=== PATIENT | female | born 1990 | race Caucasian/White ===

== ENCOUNTER 2016-07-27 05:50 | Emergency (ER) | payer OTHER ==
[~2016-07-27] VITALS: Ht 157.5 cm; Wt 95.3 kg
[2016-07-27 05:53] VITALS: TEMP 36.8; Ht 157.5 cm; Wt 95.3 kg
[2016-07-27] MEDS ORDERED: CLON0.2T PO (06:11)
[2016-07-27] MEDS ORDERED: MIRT30TA2 PO (06:12)
[2016-07-27] MEDS ORDERED: SODIUM CHLORIDE 0.9% 1000ML 2,000 ML IV STA (06:13)
[2016-07-27] MEDS ORDERED: ONDANSETRON INJ 2 MG/ML 2 ML VIAL IV STA (06:13)
[2016-07-27] MEDS ORDERED: QUET150T PO (06:13)
[2016-07-27] MEDS ORDERED: GABA-113 PO (06:14)
[2016-07-27] MEDS ORDERED: DICYCLOMINE HCL 10 MG/ML 2 ML AMP IM ONE (06:15)
[2016-07-27] MEDS ORDERED: EUCERIN CR 120 GM JAR EXT STA (06:15)
[2016-07-27] MEDS ORDERED: BND25 PO (06:16)
[2016-07-27] MEDS ORDERED: FAMOTIDINE IV INJ 20 MG in DEXTROSE 5% 100ML 100 ML IV STA (06:22)
[2016-07-27] MEDS ORDERED: ONDANSETRON HOME PACK 4MG OD TAB PO ONE (06:30)
[2016-07-27 06:42] LABS: BASO % 0.4 %; BASO ABS # 0.03 K/uL (0-0.2); COMPLETE YES; EOS % 1.1 %; HEMATOCRIT 38.6 % (37-47); IG% 0.1 %; LYMPH % 27.1 %; LYMPH ABS # 2.26 K/uL (1.2-3.4); MEAN CELL VOLUME 85.2 fL (80-100); MEAN CORPUSCULAR HEMOGLOBIN 29.4 pg (25-34); MEAN CORPUSCULAR HGB CONC 34.5 g/dl (32-36); MEAN PLATELET VOLUME 9.9 fL (7.4-10.4); MONO % 10.3 %; PLATELET COUNT 331 K/uL (130-400); RED BLOOD COUNT 4.53 M/uL (4.2-5.4); WHITE BLOOD COUNT 8.35 K/uL (4.8-10.8)
[2016-07-27] MEDS ORDERED: FAMOTIDINE 20MG/102 ML D5W ONE (06:46)
[2016-07-27 07:02] LABS: BUN/CREATININE RATIO 12.7 (10-20); CALCIUM 8.9 mg/dl (8.5-10.1); CREATININE 0.87 mg/dl (0.60-1.20); POTASSIUM 3.7 mmol/L (3.5-5.1)
[2016-07-27 07:17] LABS: PREG INTERNAL NEGATIVE QC NEG CLEAR BACKGROUND; PREG INTERNAL POSITIVE QC POS CONTROL LINE
--- NOTE | 2016-07-27 07:38 | EMERGENCY ROOM VISIT NOTE ---
ED Visit Note First contact with patient: 08:00 The patient was signed out to me at shift change by Gracy Solorzano PA-C. At the time of shift change, laboratory studies are pending. The patient does not have a fever, leukocytosis. She was reexamined. Her abdominal pain is diffuse , crampy and waxes and wanes. It is associated with nausea, vomiting and diarrhea. This more likely represents a gastroenteritis. She was advised that the pain localizes to the right lower quadrant and becomes constant she will need to return for further evaluation and management. She also incidentally stated that she slipped on the ice and twisted her back a week ago. She did not fall to the ground. She has no numbness, tingling or weakness in the legs. She has not had any loss of bowel or bladder control. She did not fall to the ground. This is likely muscular in nature. She'll be given a prescription for Flexeril. She should follow-up with her family doctor. She should return with worsening symptoms. DIFFERENTIAL DIAGNOSIS: Lumbar strain, degenerative disc disease, spondylolisthesis, herniated disc, spinal stenosis, osteoporosis, fracture, cauda equina syndrome, neoplasm, infection, inflammatory arthritis, Hepatitis, cholecystitis, cholangitis, biliary colic, pancreatitis, pneumonia, subdiaphragmatic abscess, appendicitis, inguinal hernia, nephrolithiasis, inflammatory bowel disease, mesenteric adenitis, peptic ulcer disease, GERD, gastritis, pancreatitis, myocardial infarction, pericarditis, ruptured aortic aneurysm, appendicitis, gastroenteritis, bowel obstruction, splenic infarct, diverticulitis, mesenteric ischemia, metabolic, peritonitis, among others. DIAGNOSIS: #1 nausea, vomiting and diarrhea #2 myofascial lumbar strain
[2016-07-27] MEDS ORDERED: CYCL10TA6 PO (07:41)
[2016-07-27 07:51] VITALS: BP 122/83; PULSE 89; O2SAT 98
--- NOTE | 2016-07-28 05:35 | EMERGENCY ROOM VISIT NOTE ---
History First contact with patient: 06:12 Chief Complaint: ABDOMINAL PAIN Stated Complaint: STOMACH PAIN,VOMITING,DIARRHEA History of Present Illness The patient is a 26 year old female who presents to the Emergency Room with complaints of nausea, vomiting, diarrhea and abdominal cramping for the past day. Patient also complains of a flareup of her eczema and is requesting cream for this. Patient complains of a few episodes of vomiting and diarrhea that is nonbloody nonbilious [id number] nonblack and tarry in nature. No well water. No bad food exposure. She's had amoxicillin this past 3 months. Patient denies chest pain, dyspnea, fever, chills, cough, congestion, back pain , urinary symptoms. No localized abdominal pain. Review of Systems See HPI for pertinent positives & negatives. A total of 10 systems reviewed and were otherwise negative. Past Medical/Surgical History Mood disorder, endometriosis, GERD Social History Smoking Status: Former Smoker Drug Use: none Housing Status: lives with family Current/Historical Medications Scheduled Clonidine Hcl (Catapres), 0.4 MG PO HS Cyclobenzaprine Hcl (Flexeril), 10 MG PO TID Diphenhydramine Hcl (Benadryl), 50 MG PO HS Gabapentin (Neurontin), 900 MG PO HS Mirtazapine Soltab (Remeron Soltab), 30 MG PO HS Quetiapine Fumarate Xr (Seroquel Xr), 150 MG PO HS Allergies Coded Allergies: Calcium Channel Blockers (Verified Allergy, Mild, Hives, 07/27/16) Doxycycline (Verified Allergy, Mild, Vomiting, 07/27/16) Physical Exam Vital Signs Date Time Temp Pulse Resp B/P Pulse Ox O2 Delivery O2 Flow Rate FiO2 07/27/16 07:51 89 18 122/83 98 07/27/16 05:53 36.8 96 16 115/78 97 Room Air Physical Exam VITALS: Vitals are noted on the nurse's note and reviewed by myself. Vital signs stable. GENERAL: Pleasant female, in no acute distress, nondiaphoretic, well-developed well-nourished. SKIN: Eczema to bilateral arms and back The rest of the skin was without rashes , erythema, edema, or bruising. There is no tenting of the skin. Capillary reflex less than 2 seconds. HEAD: Normocephalic atraumatic. EARS: External auditory canals clear, tympanic membranes pearly redding without erythema or effusion bilaterally. EYES: Pupils equal round and reactive to light and accommodation. Conjunctivae without injection, sclerae without icterus. Extraocular movements intact. NOSE: Patent, turbinates without inflammation or discharge. MOUTH: Mucous membranes mildly dry. Pharynx without erythema or exudate. Uvula midline. Airway patent. Tongue does not deviate. NECK: Supple without nuchal rigidity. No lymphadenopathy. No thyromegaly. Cervical spine is nontender. No JVD. HEART: Regular rate and rhythm without murmurs gallops or rubs. LUNGS: Clear to auscultation bilaterally without wheezes, rales or rhonchi. No dullness to percussion. No retractions or accessory muscle use. ABDOMEN: Positive bowel sounds x 4. Normal tympanic percussion. Soft, nontender, without masses or organomegaly. Calderon sign negative. No guarding or rebound tenderness. No CVA tenderness MUSCULOSKELETAL: No muscle atrophy, erythema, or edema noted. NEURO: Patient was alert and oriented to person place and time. Normal sensation to light and sharp touch. No focal neurological deficits. Medical Decision & Procedures Laboratory Results 07/27/16 06:25 Red Blood Count 4.53, Mean Corpuscular Volume 85.2, Mean Corpuscular Hemoglobin 29.4, Mean Corpuscular Hemoglobin Concent 34.5, Mean Platelet Volume 9.9, Neutrophils (%) (Auto) 61.0, Lymphocytes (%) (Auto) 27.1, Monocytes (%) (Auto) 10.3, Eosinophils (%) (Auto) 1.1, Basophils (%) (Auto) 0.4, Neutrophils # (Auto ) 5.10, Lymphocytes # (Auto) 2.26, Monocytes # (Auto) 0.86, Eosinophils # (Auto ) 0.09, Basophils # (Auto) 0.03 07/27/16 06:25 Test 07/27/16 06:25 White Blood Count 8.35 K/uL (4.8-10.8) Red Blood Count 4.53 M/uL (4.2-5.4) Hemoglobin 13.3 g/dL (12.0-16.0) Hematocrit 38.6 % (37-47) Mean Corpuscular Volume 85.2 fL (80-100) Mean Corpuscular Hemoglobin 29.4 pg (25-34) Mean Corpuscular Hemoglobin Concent 34.5 g/dl (32-36) Platelet Count 331 K/uL (130-400) Mean Platelet Volume 9.9 fL (7.4-10.4) Neutrophils (%) (Auto) 61.0 % Lymphocytes (%) (Auto) 27.1 % Monocytes (%) (Auto) 10.3 % Eosinophils (%) (Auto) 1.1 % Basophils (%) (Auto) 0.4 % Neutrophils # (Auto) 5.10 K/uL (1.4-6.5) Lymphocytes # (Auto) 2.26 K/uL (1.2-3.4) Monocytes # (Auto) 0.86 K/uL (0.11-0.59) Eosinophils # (Auto) 0.09 K/uL (0-0.5) Basophils # (Auto) 0.03 K/uL (0-0.2) RDW Standard Deviation 44.6 fL (36.4-46.3) RDW Coefficient of Variation 14.3 % (11.5-14.5) Immature Granulocyte % (Auto) 0.1 % Immature Granulocyte # (Auto) 0.01 K/uL (0.00-0.02) Anion Gap 9.0 mmol/L (3-11) Est Creatinine Clear Calc Drug Dose 105.5 ml/min Estimated GFR () 106.6 Estimated GFR (Non- 91.9 BUN/Creatinine Ratio 12.7 (10-20) Calcium Level 8.9 mg/dl (8.5-10.1) Human Chorionic Gonadotropin, Qual NEG (NEG) Medications Administered Medications (Trade) Dose Ordered Sig/Lou Route Start Time Stop Time Status Last Admin Dose Admin Ondansetron HCl 4 mg 4 mg NOW STAT IV 07/27/16 06:13 07/27/16 06:15 DC 07/27/16 06:40 4 MG Sodium Chloride (Nss 1000ml) 2,000 ml @ 999 mls/hr Q2H1M STAT IV 07/27/16 06:13 07/27/16 08:13 DC 07/27/16 06:39 999 MLS/HR Dicyclomine HCl (Bentyl Inj) 20 mg NOW ONCE IM 07/27/16 06:15 07/27/16 06:16 DC 07/27/16 06:41 20 MG Multi-Ingredient Ointment 1 appln 1 appln NOW STAT EXT 07/27/16 06:15 07/27/16 06:16 DC 07/27/16 06:15 1 APPLN Famotidine/ Dextrose (Pepcid IV Inj/ D5 100ml) 102 ml @ 200 mls/hr NOW STAT IV 07/27/16 06:22 07/27/16 06:52 DC 07/27/16 06:22 200 MLS/HR Ondansetron HCl (ZOFRAN ODT 4MG Home Pack) 1 homepack UD ONCE PO 07/27/16 06:30 07/27/16 06:31 DC 07/27/16 06:54 1 HOMEPACK ED Course Prior records/ancillary studies reviewed. Triage Nursing notes reviewed. Additional history obtained from the family. The patient's history was concerning for nausea, vomiting, diarrhea, and abdominal pain. Differential diagnosis: Etiologies such as gastroenteritis, food borne illness, infections, appendicitis , diverticulitis, inflammatory bowel disease, obstruction, GI bleed, biliary pathology, as well as others were entertained. Physical examination findings: As above. Abdominal examination revealed no tenderness. Vital signs reviewed and revealed stable. ER treatment provided: IV hydration 1 L NSS. Zofran, Bentyl, Pepcid On reassessment the patient felt better. Patient was tolerating p.o. intake. Diagnostics interpretation by me: The labs revealed no worrisome leukocytosis or anemia. This appears to be consistent with vomiting and diarrhea. Patient felt much better after being medicated as above. She is tolerating fluids. She is advised to rest, stay well-hydrated and to do clear liquid diet today and the progress as tolerated to bland diet tonight. She is advised to follow-up with family care in a few days or here in the ER sooner for abdominal pain, fevers, vomiting, worsening signs or symptoms or as needed. She is advised to apply Eucerin cream as directed. Avoid hot showers. By the evaluation outlined above emergent etiologies such as appendicitis, diverticulitis, obstruction, cardiac sources, mesenteric ischemia, aortic pathology, inflammatory bowel disease, renal colic, PUD, biliary pathology, UTI, as well as others were deemed relatively unlikely. The pt informed about the findings as listed above. All questions were answered and pleased with the treatment. Return instructions were outlined and the patient was discharged in stable condition. Outpatient prescription management: zofran Referral: The patient was referred to their primary care physician for follow-up in 2 to 3 days for a recheck of the current condition. Medical Decision As above Impression Primary Impression: Nausea vomiting and diarrhea Additional Impression: Eczema of both upper extremities Departure Information Dispostion Home / Self-Care Condition GOOD Prescriptions Cyclobenzaprine Hcl (FLEXERIL) 10 Mg Tab 10 MG PO TID, #20 TAB Prov: Naheed Guthrie PA-C 07/27/16 Referrals No Doctor, Assigned (PCP) Patient Instructions A Signature Page Additional Instructions Apply Eucerin cream 2-3 times to the affected area. Avoid excessively hot showers. DO NOT drive, drink alcohol, operate machinery, or perform dangerous activities today. You were given medications in the ER that can affect your ability to safely function or operate a vehicle. Zofran(odansetron) tablets 4mg: Take one and allow it to dissolve in your mouth every four to six hours as needed for nausea or vomiting. Ibuprofen(Motrin, Advil) may be used for fever or pain. Use 600mg every six hours as needed. Take with food. Avoid using more than 2400mg in a 24 hour period. Do not use 2400mg per day for more than three consecutive days without physician direction. Prolonged inappropriate use can lead to stomach upset or ulcers. (AND/OR) Acetaminophen(Tylenol) may be used for fever or pain. Use 1000mg every six hours as needed. Avoid using more than 3000mg in a 24 hour period. Rest and drink plenty of fluids as tolerated. Slow sips of water or sports drinks are recommended instead of large amounts all at once. Continue current medications. Once your stomach is settled start with a clear liquid diet (jello, soup broth, etc.) and then advance as tolerated. You should avoid full, heavy meals for about 24 hrs from the time your symptoms resolved. Return to the ER for persistent vomiting, fevers, abdominal pain, chest pains, difficulty breathing, black or bloody stools, worsening of your condition, or as needed. Follow up with your primary physician in 2-3 days for a recheck of your current condition. Problem Qualifiers
== END 2016-07-27 07:52 | disposition home or self-care (01) ==
LOC: C.EDB 05:51
DX: R11.2 Nausea with vomiting, unspecified (principal); R19.7 Diarrhea, unspecified; L30.9 Dermatitis, unspecified; Z87.891 Personal history of nicotine dependence; S39.012A Strain of muscle, fascia and tendon of lower back, initial encounter; W00.0XXA Fall on same level due to ice and snow, initial encounter; Y93.89 Activity, other specified; Y92.89 Other specified places as the place of occurrence of the external cause; Y99.8 Other external cause status

== ENCOUNTER 2016-08-25 21:29 | Emergency (ER) | payer OTHER ==
[~2016-08-25] VITALS: Ht 157.5 cm; Wt 96.5 kg
[~2016-08-25 21:29] MED LIST: BND25 PO; CLON0.2T PO; GABA-113 PO; MIRT30TA2 PO; QUET150T PO
[2016-08-25 21:39] VITALS: TEMP 37.9; Ht 157.5 cm; Wt 96.5 kg
[2016-08-25] MEDS ORDERED: KETOROLAC TROMETHAMINE 30 MG/ML VIAL IV STA (22:36)
[2016-08-25] MEDS ORDERED: SODIUM CHLORIDE 0.9% 1000ML 1,000 ML IV ONE (22:45)
[2016-08-25 23:14] LABS: BUN/CREATININE RATIO 7.4 (10-20); CALCIUM 8.9 mg/dl (8.5-10.1); CREATININE 0.88 mg/dl (0.60-1.20)
[2016-08-25 23:24] LABS: ALB/GLOB RATIO 0.6 (0.9-2); THYROID STIMULATING HORMONE 2.22 uIu/ml (0.300-4.500)
[2016-08-25 23:45] LABS: COMPLETE YES; EOSINOPHIL % 1.8 %; HEMATOCRIT 40.7 % (37-47); LYMPH ABS # 1.56 K/uL (1.2-3.4); LYMPHOCYTE % 22.3 %; MEAN CELL VOLUME 83.6 fL (80-100); MEAN CORPUSCULAR HEMOGLOBIN 28.7 pg (25-34); MEAN CORPUSCULAR HGB CONC 34.4 g/dl (32-36); MEAN PLATELET VOLUME 10.4 fL (7.4-10.4); META ABS # 0.06 K/uL (0-0); METAMYELOCYTE % 0.9 %; NEUTROPHILS % 47.3 %; PLATELET COUNT 209 K/uL (130-400); PLT ESTIMATE NORMAL; RED BLOOD COUNT 4.87 M/uL (4.2-5.4); VACUOLIZATION 1+; VARIANT LYM ABS # 1.69 K/uL; VARIANT LYMPHOCYTE % 24.1 %
--- NOTE | 2016-08-25 23:45 | DIAGNOSTIC IMAGING REPORT ---
ULTRASOUND SOFT TISSUES NECK CLINICAL HISTORY: Right-sided neck mass. COMPARISON STUDY: No priors. FINDINGS: Real-time, grayscale, and color Doppler sonography of the soft tissues of the right neck is performed. There are hypoechoic well-circumscribed soft tissue masses identified in this region typical in appearance for lymphadenopathy. Largest node measures 3.9 x 2.4 x 2.5 cm. These demonstrate internal vascularity on color imaging. No fluid collection is seen. IMPRESSION: The finding of palpable concern corresponds to cervical lymphadenopathy. This could be a reactive basis or related to an infection process such as mononucleosis. Clinical correlation will be required, and clinical follow-up to resolution is recommended. If these lymph nodes fail to resolve over a reasonable time course then repeat ultrasound and fine-needle aspiration should be considered. Electronically signed by: Bryson Ulloa M.D. 08/25/2016 11:44 PM Dictated Date/Time: 08/25/2016 11:41 PM
[2016-08-26 00:19] VITALS: BP 129/83; PULSE 112; O2SAT 98
--- NOTE | 2016-08-26 01:52 | EMERGENCY ROOM VISIT NOTE ---
History First contact with patient: 22:01 Chief Complaint: WOUND INFECTION Stated Complaint: LUMP IN NECK PALPABLE Nursing Triage Summary: pt reports swollen gland to right side of neck since yesterday. worsening. c/o headache today, hot and cold/chills, denies throat pain. Tried hot and cold compresses and Ibuprofen at 1700. no relief History of Present Illness The patient is a 26 year old female who presents to the Emergency Room with complaints of a painful swollen lump in her right side neck. The patient states this has worsened over the past 48 hours. She does have a slight amount of throat pain. She has not had relief of symptoms with warm compress and ibuprofen. She is able to swallow and breathe without difficulty. No chest pain or cough. The patient does have a mild headache. She rates her discomfort an 8/10. Review of Systems More than 10 systems were reviewed and otherwise negative with the exception of history of present illness. Past Medical/Surgical History No pertinent chronic medical disease Family History No pertinent family history Social History Smoking Status: Never Smoker Drug Use: none Housing Status: lives with family Current/Historical Medications Scheduled Clonidine Hcl (Catapres), 0.5 MG PO HS Diphenhydramine Hcl (Benadryl), 50 MG PO HS Gabapentin (Neurontin), 900 MG PO HS Mirtazapine Soltab (Remeron Soltab), 30 MG PO HS Quetiapine Fumarate Xr (Seroquel Xr), 150 MG PO HS Allergies Coded Allergies: Calcium Channel Blockers (Verified Allergy, Mild, Hives, 08/25/16) Doxycycline (Verified Allergy, Mild, Vomiting, 08/25/16) Physical Exam Vital Signs Date Time Temp Pulse Resp B/P Pulse Ox O2 Delivery O2 Flow Rate FiO2 08/26/16 00:19 112 19 129/83 98 Room Air 08/25/16 23:40 110 19 141/83 96 Room Air 08/25/16 21:39 37.9 87 20 130/62 99 Room Air Pain Rating (0-10): 5.0 Physical Exam VITALS: Vitals are noted on the nurse's note and reviewed by myself. Vital signs stable. GENERAL: Well-developed, well-nourished, white female, who is in no acute distress and resting comfortably. Patient is cooperative with the examination. HEAD: Normocephalic atraumatic. EARS: External ear normal. External auditory canals clear, tympanic membranes pearly redding without erythema or effusion bilaterally. EYES: Pupils equal round and reactive to light and accommodation. Conjunctivae without injection, sclerae without icterus. Extraocular movements intact. NOSE: Patent, turbinates without inflammation or discharge. MOUTH: Mucous membranes moist. Tonsils are not enlarged. Pharynx without erythema, blood, or exudate. Uvula midline. Airway patent. NECK: Supple without nuchal rigidity. There is a notable right anterior chain lymph node measuring approximately 3.5 cm x 3 cm in dimension. This is freely mobile and slightly tender. No other significant wounds appreciated. HEART: Regular rate and rhythm without murmurs gallops or rubs. LUNGS: Clear to auscultation bilaterally without wheezes, rales or rhonchi. No retractions or accessory muscle use. ABDOMEN: Positive normal bowel sounds x 4. Soft, nontender, without masses or organomegaly. No guarding or rebound tenderness. MUSCULOSKELETAL: No muscle atrophy, erythema, or edema noted. Full range of motion without joint tenderness in all extremities. Medical Decision & Procedures ER Provider Diagnostic Interpretation: ULTRASOUND SOFT TISSUES NECK CLINICAL HISTORY: Right-sided neck mass. COMPARISON STUDY: No priors. FINDINGS: Real-time, grayscale, and color Doppler sonography of the soft tissues of the right neck is performed. There are hypoechoic well-circumscribed soft tissue masses identified in this region typical in appearance for lymphadenopathy. Largest node measures 3.9 x 2.4 x 2.5 cm. These demonstrate internal vascularity on color imaging. No fluid collection is seen. IMPRESSION: The finding of palpable concern corresponds to cervical lymphadenopathy. This could be a reactive basis or related to an infection process such as mononucleosis. Clinical correlation will be required, and clinical follow-up to resolution is recommended. If these lymph nodes fail to resolve over a reasonable time course then repeat ultrasound and fine-needle aspiration should be considered. Laboratory Results 08/25/16 22:30 Red Blood Count 4.87, Mean Corpuscular Volume 83.6, Mean Corpuscular Hemoglobin 28.7, Mean Corpuscular Hemoglobin Concent 34.4, Mean Platelet Volume 10.4 08/25/16 22:30 Test 08/25/16 22:30 White Blood Count 7.00 K/uL (4.8-10.8) Red Blood Count 4.87 M/uL (4.2-5.4) Hemoglobin 14.0 g/dL (12.0-16.0) Hematocrit 40.7 % (37-47) Mean Corpuscular Volume 83.6 fL (80-100) Mean Corpuscular Hemoglobin 28.7 pg (25-34) Mean Corpuscular Hemoglobin Concent 34.4 g/dl (32-36) Platelet Count 209 K/uL (130-400) Mean Platelet Volume 10.4 fL (7.4-10.4) RDW Standard Deviation 42.6 fL (36.4-46.3) RDW Coefficient of Variation 13.9 % (11.5-14.5) Neutrophils % (Manual) 47.3 % Lymphocytes % (Manual) 22.3 % Variant Lymphocytes % (manual) 24.1 % Monocytes % (Manual) 3.6 % Eosinophils % (Manual) 1.8 % Metamyelocytes % 0.9 % Neutrophils # (Manual) 3.31 K/uL (1.4-6.5) Total Absolute Neutrophils 3.31 K/uL (1.4-6.5) Lymphocytes # (Manual) 1.56 K/uL (1.2-3.4) Absolute Variant Lymphocytes 1.69 K/uL Total Absolute Lymphocytes 3.25 K/uL (1.2-3.4) Monocytes # (Manual) 0.25 K/uL (0.11-0.59) Eosinophils # (Manual) 0.13 K/uL (0-0.5) Metamyelocytes # 0.06 K/uL (0-0) Toxic Vacuolation 1+ Platelet Estimate NORMAL Anion Gap 12.0 mmol/L (3-11) Est Creatinine Clear Calc Drug Dose 105.0 ml/min Estimated GFR () 105.1 Estimated GFR (Non- 90.7 BUN/Creatinine Ratio 7.4 (10-20) Calcium Level 8.9 mg/dl (8.5-10.1) Total Bilirubin 0.4 mg/dl (0.2-1) Aspartate Amino Transf (AST/SGOT) 41 U/L (15-37) Alanine Aminotransferase (ALT/SGPT) 26 U/L (12-78) Alkaline Phosphatase 119 U/L (45-117) Total Protein 8.4 gm/dl (6.4-8.2) Albumin 3.1 gm/dl (3.4-5.0) Globulin 5.3 gm/dl (2.5-4.0) Albumin/Globulin Ratio 0.6 (0.9-2) Thyroid Stimulating Hormone (TSH) 2.220 uIu/ml (0.300-4.500) Monoscreen POS (NEG) Medications Administered Medications (Trade) Dose Ordered Sig/Lou Route Start Time Stop Time Status Last Admin Dose Admin Ketorolac Tromethamine 30 mg 30 mg NOW STAT IV 08/25/16 22:36 08/25/16 22:39 DC 08/25/16 22:50 30 MG Sodium Chloride (Nss 1000ml) 1,000 ml @ 999 mls/hr Q1H1M ONCE IV 08/25/16 22:45 08/25/16 23:45 DC 08/25/16 22:50 999 MLS/HR ED Course Physical exam and history were performed. Nursing notes and EMR were reviewed. Patient appears to have a painful right-sided neck mass over the past 48 hours. Clinically this seems most consistent with a lymph node. Rapid strep was performed and was negative. Because of this IV access was established and labs were obtained. The patient was given IV Toradol for her symptoms. Ultrasound was ordered. The patient's blood work is as above and was reviewed. She does not have a significantly elevated white blood cell count, gross anemia, bandemia, or significant electrolyte imbalance. Her transaminases are slightly elevated, and her Monospot is positive. Ultrasound does suggest that she has an enlarged lymph node. Overall the patient appears to have infectious mononucleosis with hepatitis. I had a lengthy discussion with patient regarding significance of this, and the importance of getting her blood work rechecked by her primary care physician. I did discuss the importance of splenic precautions, and other conservative measures. Overall the patient does appear stable for discharge home. She was invited back to the ER with any new, worsening, or concerning symptoms. She voiced understanding and rated her discomfort a 5/10 at the time of departure. The chart was completed utilizing [employer] Voice Recognition Software. Grammatical errors, random word insertions, pronoun errors, and incomplete sentences are an occasional consequence of this system due to software limitations, ambient noise, and hardware issues. Any formal questions or concerns about the content, text, or information contained within the body of this dictation should be directly addressed to the provider for clarification. . Medical Decision Differential diagnosis: Etiologies such as viral syndrome, tonsillitis, streptococcal pharyngitis, mononucleosis, peritonsillar abscess, retropharyngeal abscess, otitis, pneumonia , influenza, as well as others were entertained. Impression Primary Impression: Mononucleosis, infectious, with hepatitis Additional Impression: Lymphadenopathy Departure Information Dispostion Home / Self-Care Condition GOOD Forms HOME CARE DOCUMENTATION FORM, IMPORTANT VISIT INFORMATION Patient Instructions Mononucleosis, My [facility] Additional Instructions You were seen and evaluated today on an emergency basis only. This is not a substitute for, or an effort to provide, complete comprehensive medical care. It is not possible to recognize and treat all injuries or illnesses in a single emergency department visit. For this reason it is recommended that you followup with your primary care physician next week for ongoing care and evaluation. You will need repeat blood work to make sure your liver function tests have returned to normal. Your primary care physician can help facilitate this. For baseline pain relief you may alternate ibuprofen and acetaminophen every 4 hours for pain control. Take 600 mg ibuprofen (Advil) and then 4 hours later take 1000 mg acetaminophen (Tylenol). Do not take more than 3000 mg acetaminophen in a single day. You are welcome to return to the emergency department anytime with new, worsening, or concerning symptoms. Problem Qualifiers
== END 2016-08-26 00:29 | disposition home or self-care (01) ==
LOC: C.EDB 21:30 → C.EDA 08-26 00:29
DX: B27.90 Infectious mononucleosis, unspecified without complication (principal); K75.9 Inflammatory liver disease, unspecified; R59.1 Generalized enlarged lymph nodes; Z79.899 Other long term (current) drug therapy

== ENCOUNTER 2016-08-30 11:27 | Emergency (ER) | payer OTHER ==
[~2016-08-30] VITALS: Ht 157.5 cm; Wt 97.9 kg
[2016-08-30 11:36] VITALS: TEMP 38.2; Ht 157.5 cm; Wt 97.9 kg
[2016-08-30] MEDS ORDERED: ACETAMINOPHEN 325 MG TAB PO STA (11:57)
[2016-08-30] MEDS ORDERED: ONDANSETRON INJ 2 MG/ML 2 ML VIAL IV STA (11:57)
[2016-08-30 12:17] LABS: HEMATOCRIT 38.7 % (37-47); MEAN CELL VOLUME 82.5 fL (80-100); MEAN CORPUSCULAR HEMOGLOBIN 28.4 pg (25-34); MEAN CORPUSCULAR HGB CONC 34.4 g/dl (32-36); MEAN PLATELET VOLUME 10.3 fL (7.4-10.4); PLATELET COUNT 177 K/uL (130-400); RED BLOOD COUNT 4.69 M/uL (4.2-5.4)
[2016-08-30 12:38] LABS: BUN/CREATININE RATIO 7.6 (10-20); CALCIUM 8.6 mg/dl (8.5-10.1); CREATININE 0.86 mg/dl (0.60-1.20)
[2016-08-30] MEDS ORDERED: SODIUM CHLORIDE 0.9% 1000ML 1,000 ML IV STA (12:40)
[2016-08-30] MEDS ORDERED: KETOROLAC TROMETHAMINE 30 MG/ML VIAL IV STA (12:40)
[2016-08-30] MEDS ORDERED: DEXAMETHASONE SOD INJ 10 MG/ML VIAL IV STA (12:40)
[2016-08-30 12:41] LABS: ALB/GLOB RATIO 0.6 (0.9-2)
[2016-08-30] MEDS ORDERED: CLINDAMYCIN IV 900 MG in DEXTROSE 5% ADD-VANTAGE 100ML 100 ML IV ONE (12:45)
[2016-08-30] MEDS ORDERED: OPTIRAY 320 IV PRN (12:45)
[2016-08-30 13:06] LABS: BASO ABS # 0.13 K/uL (0-0.2); BASOPHIL % 0.9 %; COMPLETE YES; LYMPH ABS # 3.23 K/uL (1.2-3.4); LYMPHOCYTE % 22.1 %; NEUTROPHILS % 17.7 %; VACUOLIZATION 1+; VARIANT LYM ABS # 8.26 K/uL; VARIANT LYMPHOCYTE % 56.6 %
--- NOTE | 2016-08-30 13:14 | EMERGENCY ROOM VISIT NOTE ---
History Report prepared by Richie: Pasha Giordano Under the Supervision of: Dr. Zacarias De La O M.D. First contact with patient: 12:34 Chief Complaint: ABDOMINAL PAIN Stated Complaint: VOMIT-RED COLORED, ABD. PAIN, DX: MONO ON SUNDAY Nursing Triage Summary: N/V since sunday. mono diagnosed on sunday. History of Present Illness The patient is a 26 year old female who presents to the Emergency Room with complaints of worsening sharp abdominal pain for the past five days. She additionally states that she has been vomiting. The patient states that she was in the emergency department 5 days ago for similar symptoms, and she was diagnosed with mono. She states that she was told to take Tylenol and Motrin. The patient states that the pain has only gotten worse since then. Source of History: patient Onset: five days ago Position: abdomen Quality: sharp Timing: worsening Associated Symptoms: + vomiting Review of Systems See HPI for pertinent positives & negatives. A total of 10 systems reviewed and were otherwise negative. Past Medical & Surgical Surgical Problems: (1) H/O exploratory laparotomy (2) [place] teeth extracted Family History Cancer Diabetes mellitus Heart disease Hypertension Lung disease Social History Smoking Status: Never Smoker Drug Use: none Marital Status: single Housing Status: lives with family Current/Historical Medications Scheduled Clindamycin Hcl (Cleocin), 300 MG PO QID Clonidine Hcl (Catapres), 0.5 MG PO HS Diphenhydramine Hcl (Benadryl), 50 MG PO HS Gabapentin (Neurontin), 900 MG PO HS Mirtazapine Soltab (Remeron Soltab), 30 MG PO HS Quetiapine Fumarate Xr (Seroquel Xr), 150 MG PO HS Scheduled PRN Hydrocodone W/ Homatropine (Hycodan 5/1.5MG 5 Ml), 5 ML PO HS PRN for Cough Allergies Coded Allergies: Calcium Channel Blockers (Verified Allergy, Mild, Hives, 08/30/16) Doxycycline (Verified Allergy, Mild, Vomiting, 08/30/16) Physical Exam Vital Signs Date Time Temp Pulse Resp B/P Pulse Ox O2 Delivery O2 Flow Rate FiO2 08/30/16 14:51 93 18 122/74 95 08/30/16 12:51 94 20 129/86 94 Room Air 08/30/16 12:26 100 08/30/16 11:36 38.2 123 18 137/91 96 Room Air Physical Exam GENERAL: Patient is a healthy-appearing well-nourished. Swallowing her own saliva HEAD: Normocephalic atraumatic EYES: Ocular movements intact pupils equal and react to light OROPHARYNX mucous membranes are moist no exudates present no erythema or edema present NECK: Supple no nuchal rigidity CHEST: Good equal expansion LUNGS: Clear and equal to auscultation CARDIAC: Normal S1 and S2 ABDOMEN: Soft nontender no guarding BACK: No CVA tenderness EXTREMITIES: No pain upon palpation normal muscle strength in all groups no clubbing cyanosis or edema NEURO: Patient is following commands is answering questions appropriately. Alert and oriented x3 Cranial Nerves 2-12 grossly intact Medical Decision & Procedures ER Provider Diagnostic Interpretation: CT results as stated below per my review and radiologist interpretation: CT SCAN OF THE ABDOMEN AND PELVIS WITH IV CONTRAST CLINICAL HISTORY: Generalized abdominal pain. Nausea and vomiting. COMPARISON STUDY: No priors. TECHNIQUE: Following the IV administration of 119 cc of Optiray 320, CT scan of the abdomen and pelvis is performed from the lung bases to the proximal femora. Images are reviewed in the axial, sagittal, and coronal planes. IV contrast was administered without complication. Automated dose control exposure was utilized. CT DOSE: 919.21 mGycm FINDINGS: Lung bases: The heart is normal in size and without pericardial effusion. A 1.3 cm calcification containing nodule is seen at the left lung base on image #29. Lung bases are otherwise clear noting foci of subsegmental atelectasis. Liver: The contrast-enhanced liver is enlarged, measuring 19.2 cm in length. The liver demonstrates slightly diminished attenuation consistent with hepatic steatosis. Fatty sparing is noted adjacent to gallbladder fossa. There is no intrahepatic biliary ductal dilatation. The hepatic veins and portal veins are patent. Gallbladder: Unremarkable. Spleen: The spleen is enlarged, measuring 15.7 cm in length. Pancreas: Unremarkable. Adrenal glands: Unremarkable. Kidneys: The contrast enhanced kidneys are normal in size and without hydronephrosis. The kidneys enhance symmetrically. Abdominal vasculature: The abdominal aorta is normal in course and caliber. Bowel: The small bowel and colon are normal in course and caliber. There is mild colonic fecal retention. The appendix is well-visualized and normal. Peritoneum: There is no intraperitoneal free air or abdominal ascites. There is a fat-containing umbilical hernia. Lymphadenopathy: There are mildly enlarged retroperitoneal lymph nodes. The largest is aortocaval and measures 10 mm in short axis as seen on image #153. Pelvic viscera: The bladder, uterus, and adnexa are normal as visualized. There are bilateral ovarian follicles. A contraceptive ring is present in the vagina. Skeletal structures: No lytic or blastic lesions are seen. IMPRESSION: 1. There are no acute infectious or inflammatory findings in the abdomen or pelvis. 2. Splenomegaly. 3. Hepatomegaly and mild hepatic steatosis. 4. Mildly enlarged retroperitoneal lymph nodes are nonspecific and may be on a reactive basis. Clinical correlation will be required. Electronically signed by: Bryson Ulloa M.D. 08/30/2016 1:15 PM Dictated Date/Time: 08/30/2016 1:11 PM Laboratory Results 08/30/16 12:05 Red Blood Count 4.69, Mean Corpuscular Volume 82.5, Mean Corpuscular Hemoglobin 28.4, Mean Corpuscular Hemoglobin Concent 34.4, Mean Platelet Volume 10.3 08/30/16 12:05 Test 08/30/16 12:05 08/30/16 14:00 White Blood Count 14.60 K/uL (4.8-10.8) Red Blood Count 4.69 M/uL (4.2-5.4) Hemoglobin 13.3 g/dL (12.0-16.0) Hematocrit 38.7 % (37-47) Mean Corpuscular Volume 82.5 fL (80-100) Mean Corpuscular Hemoglobin 28.4 pg (25-34) Mean Corpuscular Hemoglobin Concent 34.4 g/dl (32-36) Platelet Count 177 K/uL (130-400) Mean Platelet Volume 10.3 fL (7.4-10.4) RDW Standard Deviation 43.5 fL (36.4-46.3) RDW Coefficient of Variation 14.6 % (11.5-14.5) Neutrophils % (Manual) 17.7 % Lymphocytes % (Manual) 22.1 % Variant Lymphocytes % (manual) 56.6 % Monocytes % (Manual) 2.7 % Basophils % (Manual) 0.9 % Neutrophils # (Manual) 2.58 K/uL (1.4-6.5) Total Absolute Neutrophils 2.58 K/uL (1.4-6.5) Lymphocytes # (Manual) 3.23 K/uL (1.2-3.4) Absolute Variant Lymphocytes 8.26 K/uL Total Absolute Lymphocytes 11.49 K/uL (1.2-3.4) Monocytes # (Manual) 0.39 K/uL (0.11-0.59) Basophils # (Manual) 0.13 K/uL (0-0.2) Toxic Vacuolation 1+ Anion Gap 10.0 mmol/L (3-11) Est Creatinine Clear Calc Drug Dose 108.3 ml/min Estimated GFR () 108.1 Estimated GFR (Non- 93.2 BUN/Creatinine Ratio 7.6 (10-20) Calcium Level 8.6 mg/dl (8.5-10.1) Total Bilirubin 0.7 mg/dl (0.2-1) Aspartate Amino Transf (AST/SGOT) 121 U/L (15-37) Alanine Aminotransferase (ALT/SGPT) 117 U/L (12-78) Alkaline Phosphatase 403 U/L (45-117) Total Protein 7.5 gm/dl (6.4-8.2) Albumin 2.7 gm/dl (3.4-5.0) Globulin 4.8 gm/dl (2.5-4.0) Albumin/Globulin Ratio 0.6 (0.9-2) Lipase 93 U/L (73-393) Urine Color YELLOW Urine Appearance CLEAR (CLEAR) Urine pH 7.0 (4.5-7.5) Urine Specific [place] > 1.045 (1.000-1.030) Urine Protein NEG (NEG) Urine Glucose (UA) NEG (NEG) Urine Ketones NEG (NEG) Urine Occult Blood NEG (NEG) Urine Nitrite NEG (NEG) Urine Bilirubin NEG (NEG) Urine Urobilinogen NEG (NEG) Urine Leukocyte Esterase SMALL (NEG) Urine WBC (Auto) 5-10 /hpf (0-5) Urine RBC (Auto) 5-10 /hpf (0-4) Urine Hyaline Casts (Auto) 0 /lpf (0-5) Urine Epithelial Cells (Auto) >30 /lpf (0-5) Urine Bacteria (Auto) 1+ (NEG) Labs reviewed by ED physician. Medications Administered Medications (Trade) Dose Ordered Sig/Lou Route Start Time Stop Time Status Last Admin Dose Admin Ondansetron HCl (Zofran Inj) 4 mg NOW STAT IV 08/30/16 11:57 08/30/16 12:00 DC 08/30/16 12:03 4 MG Acetaminophen (Tylenol Tab) 650 mg NOW STAT PO 08/30/16 11:57 08/30/16 12:00 DC 08/30/16 12:03 650 MG Dexamethasone Sodium Phosphate (Decadron Inj) 10 mg NOW STAT IV 08/30/16 12:40 08/30/16 12:42 DC 08/30/16 12:51 10 MG Ketorolac Tromethamine 30 mg 30 mg NOW STAT IV 08/30/16 12:40 08/30/16 12:42 DC 08/30/16 12:52 30 MG Clindamycin Phosphate 900 mg/ Dextrose 106 ml @ 100 mls/hr ONE ONCE IV 08/30/16 12:45 08/30/16 13:48 DC 08/30/16 13:17 100 MLS/HR Sodium Chloride (Nss 1000ml) 1,000 ml @ 999 mls/hr Q1H1M STAT IV 08/30/16 12:40 08/30/16 13:40 DC 08/30/16 12:52 999 MLS/HR Hydromorphone HCl (Dilaudid Inj) 1 mg NOW STAT IV 08/30/16 13:36 08/30/16 13:38 DC 08/30/16 14:02 1 MG Metoclopramide HCl (Reglan Inj) 10 mg NOW STAT IV 08/30/16 13:36 08/30/16 13:38 DC 08/30/16 14:02 10 MG ED Course 1157: Tylenol Tab 650mg PO, Zofran Inj 4mg IV 1234: Past medical records reviewed. The patient was evaluated in room B12. A complete history and physical examination was performed. 1240: Sodium Chloride 1000 ml @ 999 mls/hr IV, Decadron Inj 10mg IV 1245: Clindamycin Phosphate 900 mg/ Dextrose 106 ml @ 100mls/hr 1336: Reglan Inj 10mg IV, Dilaudid Inj 1mg IV 1419: Upon reexamination the patient is feeling better. I discussed results and treatment plan with the patient. She verbalizes agreement and understanding. The patient is ready for discharge. Medical Decision Differential diagnosis: Etiologies such as appendicitis, diverticulitis, PUD, biliary pathology, UTI, pancreatitis, obstruction, mesenteric ischemia, aortic pathology, infections, inflammatory bowel disease, renal colic, as well as others were entertained. This is a 26-year-old female who presents emergency department complaining of mononucleosis as well as abdominal pain. Based on the patient's complaints a CAT scan was performed of the abdomen and pelvis. This did not show any acute process. In addition the patient is also able swallow her own saliva. For this reason the patient was given normal saline bolus, 4 mg Zofran, Toradol. Repeat examination revealed improvement patient's symptoms. The patient was also given Hycodan in the emergency department. Serial abdominal examinations were performed on this patient in the emergency department and at no time did she exhibit a surgical abdomen. Based on these findings I felt that the patient was well enough to be discharged home for follow-up with her primary care physician. Patient was in agreement with the treatment plan. Impression Primary Impression: Mononucleosis Scribe Attestation The scribe's documentation has been prepared under my direction and personally reviewed by me in its entirety. I confirm that the note above accurately reflects all work, treatment, procedures, and medical decision making performed by me. Departure Information Dispostion Home / Self-Care Prescriptions Clindamycin Hcl (CLEOCIN) 150 Mg Cap 300 MG PO QID for 10 Days, #80 CAP Prov: Zacarias De La O MD 08/30/16 Hydrocodone W/ Homatropine (HYCODAN 5/1.5MG 5 ML) 1 Syp Syp 5 ML PO HS Y for Cough, #120 ML Prov: Zacarias De La O MD 08/30/16 Referrals Katlin Smith MD (PCP) Forms HOME CARE DOCUMENTATION FORM, IMPORTANT VISIT INFORMATION, School Instructions, Work Instructions Patient Instructions ED Adenitis Mesenteric, Mononucleosis, My [facility] Additional Instructions You received narcotic or benzodiazepene medication while in the emergency room today. Do not drive, operate heavy machinery, or drink alcohol under the influence of this medication. Take 600 mg Ibuprofen every 6 hours Take 1000 mg Tylenol every 6 hours You have been examined and treated today on an emergency basis only. This is not a substitute for, or an effort to provide, complete comprehensive medical care. It is impossible to recognize and treat all injuries or illnesses in a single emergency department visit. It is therefore important that you follow up closely with [facility]. Call as soon as possible for an appointment. Thank you for your time and consideration. I look forward to speaking with you again soon. Please don't hesitate to call us if you have any questions.
--- NOTE | 2016-08-30 13:17 | DIAGNOSTIC IMAGING REPORT ---
CT SCAN OF THE ABDOMEN AND PELVIS WITH IV CONTRAST CLINICAL HISTORY: Generalized abdominal pain. Nausea and vomiting. COMPARISON STUDY: No priors. TECHNIQUE: Following the IV administration of 119 cc of Optiray 320, CT scan of the abdomen and pelvis is performed from the lung bases to the proximal femora. Images are reviewed in the axial, sagittal, and coronal planes. IV contrast was administered without complication. Automated dose control exposure was utilized. CT DOSE: 919.21 mGycm FINDINGS: Lung bases: The heart is normal in size and without pericardial effusion. A 1.3 cm calcification containing nodule is seen at the left lung base on image #29. Lung bases are otherwise clear noting foci of subsegmental atelectasis. Liver: The contrast-enhanced liver is enlarged, measuring 19.2 cm in length. The liver demonstrates slightly diminished attenuation consistent with hepatic steatosis. Fatty sparing is noted adjacent to gallbladder fossa. There is no intrahepatic biliary ductal dilatation. The hepatic veins and portal veins are patent. Gallbladder: Unremarkable. Spleen: The spleen is enlarged, measuring 15.7 cm in length. Pancreas: Unremarkable. Adrenal glands: Unremarkable. Kidneys: The contrast enhanced kidneys are normal in size and without hydronephrosis. The kidneys enhance symmetrically. Abdominal vasculature: The abdominal aorta is normal in course and caliber. Bowel: The small bowel and colon are normal in course and caliber. There is mild colonic fecal retention. The appendix is well-visualized and normal. Peritoneum: There is no intraperitoneal free air or abdominal ascites. There is a fat-containing umbilical hernia. Lymphadenopathy: There are mildly enlarged retroperitoneal lymph nodes. The largest is aortocaval and measures 10 mm in short axis as seen on image #153. Pelvic viscera: The bladder, uterus, and adnexa are normal as visualized. There are bilateral ovarian follicles. A contraceptive ring is present in the vagina. Skeletal structures: No lytic or blastic lesions are seen. IMPRESSION: 1. There are no acute infectious or inflammatory findings in the abdomen or pelvis. 2. Splenomegaly. 3. Hepatomegaly and mild hepatic steatosis. 4. Mildly enlarged retroperitoneal lymph nodes are nonspecific and may be on a reactive basis. Clinical correlation will be required. Electronically signed by: Bryson Ulloa M.D. 08/30/2016 1:15 PM Dictated Date/Time: 08/30/2016 1:11 PM
[2016-08-30] MEDS ORDERED: METOCLOPRAMIDE HCL INJ 5 MG/ML 2 ML VIAL IV STA (13:36)
[2016-08-30] MEDS ORDERED: HYDROmorphone INJ 1 MG/ML SYR IV STA (13:36)
[2016-08-30] MEDS ORDERED: HYDR5SYP11 PO (14:19)
[2016-08-30] MEDS ORDERED: CLIN150C PO (14:19)
[2016-08-30 14:30] LABS: URINE APPEARANCE CLEAR (CLEAR); URINE BILIRUBIN NEG (NEG); URINE COLOR YELLOW; URINE EPITHELIAL CELL AUTO >30 /lpf (0-5); URINE NITRITE NEG (NEG); URINE SPECIFIC GRAVITY > 1.045 (1.000-1.030); UROBILINOGEN NEG (NEG); ZZUR CULT IF INDIC CLEAN CATCH YES
[2016-08-30 14:36] LABS: MANUAL MICROSCOPIC REQUIRED? NO; REVIEW REQ? NO
[2016-08-30 14:51] VITALS: BP 122/74; PULSE 93; O2SAT 95
== END 2016-08-30 14:52 | disposition home or self-care (01) ==
LOC: C.EDB 11:29
DX: B27.90 Infectious mononucleosis, unspecified without complication (principal); R10.9 Unspecified abdominal pain; R11.10 Vomiting, unspecified; Z79.899 Other long term (current) drug therapy; Z88.1 Allergy status to other antibiotic agents; Z88.8 Allergy status to other drugs, medicaments and biological substances; Z82.49 Family history of ischemic heart disease and other diseases of the circulatory system; Z83.3 Family history of diabetes mellitus; Z83.6 Family history of other diseases of the respiratory system

== ENCOUNTER → 2016-09-08 | Outpatient (CLI) | payer OTHER ==
[~2016-09-08] MED LIST changes: +AMPH20TA2 PO; +AMT50 PO; +ATR25 PO; +CLIN150C PO; +HYDR-3126 PO; +HYDR-5688 PO; +HYDR5SYP11 PO; +IBUP-1428 PO; +ONDA4TAB10 SL; +OXYC-57 PO; +OXYC1TAB3 PO; +PANT40TA PO; +PROM25TA9 PO; +QUET1TAB34 PO
--- NOTE | 2016-09-08 13:17 | DIAGNOSTIC IMAGING REPORT ---
THYROID ULTRASOUND HISTORY: INFECTIOUS MONONUCLEOSIS COMPARISON: 09/08/2016 FINDINGS: Bilateral cervical nodes are again noted. These appear similar compared to the prior study. The right largest measures 3.6 x 2.2 cm. On the left measure at maximum 2.4 x 1.7 cm. IMPRESSION: Bilateral cervical adenopathy this is most likely stable to slightly progressive compared to the prior exam Electronically signed by: Mendez Neely M.D. 09/08/2016 1:16 PM Dictated Date/Time: 09/08/2016 1:13 PM
== END | disposition home or self-care (01) ==
LOC: C.ULTRBC 12:36
PROVIDERS: ATTEND Family Medicine Adolescent Medicine
DX: B27.90 Infectious mononucleosis, unspecified without complication (principal); R59.0 Localized enlarged lymph nodes

== ENCOUNTER 2016-09-30 21:21 | Emergency (ER) | payer OTHER ==
[~2016-09-30] VITALS: Ht 157.5 cm; Wt 97.2 kg
[~2016-09-30 21:21] MED LIST changes: -AMPH20TA2 PO; -AMT50 PO; -ATR25 PO; -CLIN150C PO; -HYDR-3126 PO; -HYDR-5688 PO; -HYDR5SYP11 PO; -IBUP-1428 PO; -ONDA4TAB10 SL; -OXYC-57 PO; -OXYC1TAB3 PO; -PANT40TA PO; -PROM25TA9 PO; -QUET1TAB34 PO
[2016-09-30 21:29] VITALS: TEMP 36.3; Ht 157.5 cm; Wt 97.2 kg
[2016-09-30] MEDS ORDERED: QUET1TAB34 PO (22:26)
[2016-09-30 22:34] LABS: BASO % 0.4 %; BASO ABS # 0.04 K/uL (0-0.2); COMPLETE YES; EOS % 0.3 %; IG% 0.3 %; LYMPH % 15.6 %; LYMPH ABS # 1.75 K/uL (1.2-3.4); MEAN CELL VOLUME 81.5 fL (80-100); MEAN CORPUSCULAR HEMOGLOBIN 28.5 pg (25-34); MONO % 5.4 %; PLATELET COUNT 283 K/uL (130-400); RED BLOOD COUNT 4.66 M/uL (4.2-5.4); WHITE BLOOD COUNT 11.19 K/uL (4.8-10.8)
[2016-09-30] MEDS ORDERED: LIDOCAINE HCL 2% VISC SOLN 20 ML UDC PO STA (22:44)
[2016-09-30] MEDS ORDERED: ALUMINUM/MAGNESIUM SUSP 30 ML UDC PO STA (22:44)
[2016-09-30] MEDS ORDERED: ONDANSETRON INJ 2 MG/ML 2 ML VIAL IV STA (22:44)
[2016-09-30] MEDS ORDERED: FAMOTIDINE 20MG/102 ML D5W IV STA (22:44)
[2016-09-30] MEDS ORDERED: SODIUM CHLORIDE 0.9% 1000ML 1,000 ML IV STA (22:44)
[2016-09-30 22:54] LABS: BUN/CREATININE RATIO 11.9 (10-20); CALCIUM 8.7 mg/dl (8.5-10.1); CREATININE 0.89 mg/dl (0.60-1.20); POTASSIUM 3.8 mmol/L (3.5-5.1)
[2016-09-30 22:56] LABS: PREG INTERNAL NEGATIVE QC NEG CLEAR BACKGROUND; PREG INTERNAL POSITIVE QC POS CONTROL LINE
[2016-09-30 23:03] LABS: ALB/GLOB RATIO 0.6 (0.9-2)
[2016-10-01] MEDS ORDERED: PANTOprazole SOD 40 MG TAB PO STA (00:50)
[2016-10-01] MEDS ORDERED: PANT40TA PO (00:52)
[2016-10-01] MEDS ORDERED: ONDA4TAB10 SL (00:53)
[2016-10-01] MEDS ORDERED: ONDANSETRON HOME PACK 4MG OD TAB PO ONE (01:00)
[2016-10-01 01:03] VITALS: BP 113/86; PULSE 79; O2SAT 98
--- NOTE | 2016-10-01 04:21 | EMERGENCY ROOM VISIT NOTE ---
History First contact with patient: 22:36 Chief Complaint: VOMITING Stated Complaint: SEVERE NAUSEA & VOMITING Nursing Triage Summary: pt reports that she was here 1 month ago and dx with mono and strep. since then pt has been extremely nauseated and intermittent vomiting. pt reports that she gets nauseated with the smell of food. also reports intermittent mid abd pain. History of Present Illness The patient is a 26 year old female who presents to the Emergency Room with complaints of nausea, vomiting and upset stomach for the past month after taking lots of Tylenol and Motrin and antibiotics for strep throat and mono. Patient had an EGD several years ago, she's had gastritis before. Patient is new to the area. Patient denies chest pain, dyspnea, black or blood in the vomit, black stool, blood in the stool, lower abdominal pain, fever, chills, night sweats, weight loss. Review of Systems See HPI for pertinent positives & negatives. A total of 10 systems reviewed and were otherwise negative. Past Medical/Surgical History Surgical Problems: (1) H/O exploratory laparotomy (2) [place] teeth extracted Family History Cancer Diabetes mellitus Heart disease Hypertension Lung disease Social History Smoking Status: Never Smoker Drug Use: none Marital Status: single Housing Status: lives with family Current/Historical Medications Scheduled Clonidine Hcl (Catapres), 0.5 MG PO HS Diphenhydramine Hcl (Benadryl), 50 MG PO HS Gabapentin (Neurontin), 1,200 MG PO HS Mirtazapine Soltab (Remeron Soltab), 30 MG PO HS Ondasetron Odt (Zofran Odt), 4 MG SL Q6H Pantoprazole (Protonix), 40 MG PO DAILY Quetiapine Fumarate (Seroquel), 150 MG PO HS Allergies Coded Allergies: Calcium Channel Blockers (Verified Allergy, Mild, Hives, 09/30/16) Doxycycline (Verified Allergy, Mild, Vomiting, 09/30/16) Physical Exam Vital Signs Date Time Temp Pulse Resp B/P Pulse Ox O2 Delivery O2 Flow Rate FiO2 10/01/16 01:03 79 20 113/86 98 10/01/16 00:53 79 20 113/86 98 Room Air 09/30/16 23:13 82 20 117/88 96 Room Air 09/30/16 21:29 36.3 109 20 139/80 96 Room Air Pain Rating (0-10): 0 Physical Exam VITALS: Vitals are noted on the nurse's note and reviewed by myself. Vital signs stable. GENERAL: Pleasant female, in no acute distress, nondiaphoretic, well-developed well-nourished. SKIN: The skin was without rashes, erythema, edema, or bruising. There is no tenting of the skin. Capillary reflex less than 2 seconds. HEAD: Normocephalic atraumatic. EARS: External auditory canals clear, tympanic membranes pearly redding without erythema or effusion bilaterally. EYES: Pupils equal round and reactive to light and accommodation. Conjunctivae without injection, sclerae without icterus. Extraocular movements intact. NOSE: Patent, turbinates without inflammation or discharge. MOUTH: Mucous membranes moist. Pharynx without erythema or exudate. Uvula midline. Airway patent. Tongue does not deviate. NECK: Supple without nuchal rigidity. No lymphadenopathy. No thyromegaly. Cervical spine is nontender. No JVD. HEART: Regular rate and rhythm without murmurs gallops or rubs. LUNGS: Clear to auscultation bilaterally without wheezes, rales or rhonchi. No dullness to percussion. No retractions or accessory muscle use. ABDOMEN: Positive bowel sounds x 4. Normal tympanic percussion. Soft, nontender, without masses or organomegaly. Calderon sign negative. No guarding or rebound tenderness. MUSCULOSKELETAL: No muscle atrophy, erythema, or edema noted. NEURO: Patient was alert and oriented to person place and time. Normal sensation to light and sharp touch. No focal neurological deficits. Medical Decision & Procedures Laboratory Results 09/30/16 22:25 Red Blood Count 4.66, Mean Corpuscular Volume 81.5, Mean Corpuscular Hemoglobin 28.5, Mean Corpuscular Hemoglobin Concent 35.0, Mean Platelet Volume 9.0, Neutrophils (%) (Auto) 78.0, Lymphocytes (%) (Auto) 15.6, Monocytes (%) (Auto) 5.4, Eosinophils (%) (Auto) 0.3, Basophils (%) (Auto) 0.4, Neutrophils # (Auto) 8.74, Lymphocytes # (Auto) 1.75, Monocytes # (Auto) 0.60, Eosinophils # (Auto) 0.03, Basophils # (Auto) 0.04 09/30/16 22:25 Test 09/30/16 22:25 White Blood Count 11.19 K/uL (4.8-10.8) Red Blood Count 4.66 M/uL (4.2-5.4) Hemoglobin 13.3 g/dL (12.0-16.0) Hematocrit 38.0 % (37-47) Mean Corpuscular Volume 81.5 fL (80-100) Mean Corpuscular Hemoglobin 28.5 pg (25-34) Mean Corpuscular Hemoglobin Concent 35.0 g/dl (32-36) Platelet Count 283 K/uL (130-400) Mean Platelet Volume 9.0 fL (7.4-10.4) Neutrophils (%) (Auto) 78.0 % Lymphocytes (%) (Auto) 15.6 % Monocytes (%) (Auto) 5.4 % Eosinophils (%) (Auto) 0.3 % Basophils (%) (Auto) 0.4 % Neutrophils # (Auto) 8.74 K/uL (1.4-6.5) Lymphocytes # (Auto) 1.75 K/uL (1.2-3.4) Monocytes # (Auto) 0.60 K/uL (0.11-0.59) Eosinophils # (Auto) 0.03 K/uL (0-0.5) Basophils # (Auto) 0.04 K/uL (0-0.2) RDW Standard Deviation 39.8 fL (36.4-46.3) RDW Coefficient of Variation 13.3 % (11.5-14.5) Immature Granulocyte % (Auto) 0.3 % Immature Granulocyte # (Auto) 0.03 K/uL (0.00-0.02) Anion Gap 11.0 mmol/L (3-11) Est Creatinine Clear Calc Drug Dose 104.3 ml/min Estimated GFR () 103.7 Estimated GFR (Non- 89.4 BUN/Creatinine Ratio 11.9 (10-20) Calcium Level 8.7 mg/dl (8.5-10.1) Total Bilirubin 0.5 mg/dl (0.2-1) Aspartate Amino Transf (AST/SGOT) 14 U/L (15-37) Alanine Aminotransferase (ALT/SGPT) 15 U/L (12-78) Alkaline Phosphatase 89 U/L (45-117) Total Protein 8.6 gm/dl (6.4-8.2) Albumin 3.3 gm/dl (3.4-5.0) Globulin 5.3 gm/dl (2.5-4.0) Albumin/Globulin Ratio 0.6 (0.9-2) Lipase 208 U/L (73-393) Human Chorionic Gonadotropin, Qual NEG (NEG) Medications Administered Medications (Trade) Dose Ordered Sig/Lou Route Start Time Stop Time Status Last Admin Dose Admin Lidocaine HCl (Viscous Lidocaine 2% Soln) 10 ml NOW STAT PO 09/30/16 22:44 09/30/16 22:46 DC 09/30/16 23:07 10 ML Al Hydroxide/Mg Hydroxide (Maalox Susp) 30 ml NOW STAT PO 09/30/16 22:44 09/30/16 22:46 DC 09/30/16 23:07 30 ML Famotidine (Pepcid 20mg/100 ml) 20 mg ONE STAT IV 09/30/16 22:44 09/30/16 22:46 DC 09/30/16 23:06 20 MG Ondansetron HCl 4 mg 4 mg NOW STAT IV 09/30/16 22:44 09/30/16 22:46 DC 09/30/16 23:06 4 MG Sodium Chloride (Nss 1000ml) 1,000 ml @ 999 mls/hr Q1H1M STAT IV 09/30/16 22:44 09/30/16 23:44 DC 09/30/16 23:06 999 MLS/HR Pantoprazole Sodium (Protonix Tab) 40 mg NOW STAT PO 10/01/16 00:50 10/01/16 00:52 DC 10/01/16 00:59 40 MG Ondansetron HCl (ZOFRAN ODT 4MG Home Pack) 1 homepack UD ONCE PO 10/01/16 01:00 10/01/16 01:01 DC 10/01/16 00:59 1 HOMEPACK ED Course Prior records/ancillary studies reviewed. Triage Nursing notes reviewed. Additional history obtained from the family. The patient's history was concerning for nausea, vomiting Differential diagnosis: Etiologies such as gerd, peptic ulcer disease, gastroenteritis, food borne illness, infections, appendicitis, diverticulitis, inflammatory bowel disease, obstruction, GI bleed, biliary pathology, as well as others were entertained. Physical examination findings: As above. Abdominal examination revealed no tenderness. Vital signs reviewed and revealed stable. ER treatment provided: IV hydration 1 L NSS. GI cocktail, Protonix On reassessment the patient felt better. Patient was tolerating p.o. intake. Diagnostics interpretation by me: The labs revealed mild leukocytosis mostly marginalization from vomiting. No worrisome electrolyte abnormality This appears to be consistent with intermittent vomiting with upset stomach for a month now. Patient was taking a lot of [id number] medications. She most likely may have some gastritis. She was started on a PPI. She is advised to bland diet and avoid taking excessive amounts of [id number] medications. She is advised follow-up with GI for an updated endoscopy and family medicine. She is advised to return to the ER immediately for abdominal pain, fevers, vomiting, black or blood in the stool, worsening signs or symptoms or as needed. Patient did not have an acute abdomen on exam. She was well-appearing. By the evaluation outlined above emergent etiologies such as appendicitis, diverticulitis, obstruction, cardiac sources, mesenteric ischemia , aortic pathology, inflammatory bowel disease, renal colic, PUD, biliary pathology, UTI, as well as others were deemed relatively unlikely. The pt informed about the findings as listed above. All questions were answered and pleased with the treatment. Return instructions were outlined and the patient was discharged in stable condition. Outpatient prescription management: Protonix Referral: The patient was referred to their primary care physician for follow-up in 2 to 3 days for a recheck of the current condition. Case reviewed by attending Medical Decision As above Impression Primary Impression: Vomiting Additional Impression: GERD (gastroesophageal reflux disease) Departure Information Dispostion Home / Self-Care Condition GOOD Prescriptions Ondasetron Odt (ZOFRAN ODT) 4 Mg Tab 4 MG SL Q6H, #10 TAB Prov: Colleen Solorzano PA-C 10/01/16 Pantoprazole (Protonix) 40 Mg Tab 40 MG PO DAILY for 14 Days, #14 TAB Prov: Colleen Solorzano PA-C 10/01/16 Referrals Katlin Smith MD (PCP) Ruy Harrison M.D. Forms HOME CARE DOCUMENTATION FORM, IMPORTANT VISIT INFORMATION Patient Instructions GERD, Vomiting - [facility], [facility] Additional Instructions Protonix 40 m tablet daily for the next [address], drink alcohol, operate machinery, or perform dangerous activities today. You were given medications in the ER that can affect your ability to safely function or operate a vehicle. Zofran(odansetron) tablets 4mg: Take one and allow it to dissolve in your mouth every four to six hours as needed for nausea or vomiting. Rest and drink plenty of fluids as tolerated. Slow sips of water or sports drinks are recommended instead of large amounts all at once. Continue current medications. Once your stomach is settled start with a clear liquid diet (jello, soup broth, etc.) and then advance as tolerated. You should avoid full, heavy meals for about 24 hrs from the time your symptoms resolved. Return to the ER for persistent vomiting, fevers, abdominal pain, chest pains, difficulty breathing, black or bloody stools, worsening of your condition, or as needed. Follow up with your primary physician and/or thermodynamics professor in 2-3 days for a recheck of your current condition. Problem Qualifiers Primary Impression: Vomiting Vomiting type: unspecified Vomiting Intractability: non-intractable Nausea presence: with nausea Qualified Codes: R11.2 - Nausea with vomiting, unspecified
== END 2016-10-01 01:04 | disposition home or self-care (01) ==
LOC: C.EDB 21:21
DX: R11.2 Nausea with vomiting, unspecified (principal); K21.9 Gastro-esophageal reflux disease without esophagitis; Z79.899 Other long term (current) drug therapy; Z83.3 Family history of diabetes mellitus; Z82.49 Family history of ischemic heart disease and other diseases of the circulatory system; Z83.6 Family history of other diseases of the respiratory system

== ENCOUNTER 2016-11-09 11:10 | Emergency (ER) | payer OTHER ==
[~2016-11-09] VITALS: Ht 157.5 cm; Wt 98.5 kg
[~2016-11-09 11:10] MED LIST changes: -BND25 PO; +DIPH25CA5 PO; +ONDA4TAB10 SL; -QUET150T PO; +QUET1TAB34 PO
[2016-11-09 11:22] VITALS: TEMP 37.2; Ht 157.5 cm; Wt 98.5 kg
[2016-11-09] MEDS ORDERED: ONDANSETRON INJ 2 MG/ML 2 ML VIAL IV STA (12:12)
[2016-11-09] MEDS ORDERED: SODIUM CHLORIDE 0.9% 1000ML 1,000 ML IV STA (12:12)
[2016-11-09] MEDS ORDERED: MoRPHine SULFATE 4 MG/ML 1 ML CARP\\VIAL IV STA (12:12)
--- NOTE | 2016-11-09 12:18 | EMERGENCY ROOM VISIT NOTE ---
History First contact with patient: 12:00 Chief Complaint: ABDOMINAL PAIN Stated Complaint: ABDOMINAL PAIN,NAUSEA,VOMITING Nursing Triage Summary: Pt presents with RUQ pain ongoing for several months. Had an endoscopy last week that was negative. Scheduled to have an US tomorrow. N/V. History of Present Illness The patient is a 26 year old female who presents to the Emergency Room with complaints of abdominal pain. The patient states her pain started 3 months ago. She reports constant pain in the epigastrium and right upper quadrant. The patient states that 3 months ago she had mononucleosis. She has been following with her family doctor for this. The patient had an EGD one week ago and it was negative. She has been taking Zofran and Protonix without any improvement. She is scheduled for an ultrasound tomorrow but states the pain increased and she could not wait. She states that she was also scheduled to go to court today and could not make a [address] because of the pain. She rates her discomfort an 8/10. She reports associated nausea and vomiting. She denies any fevers. She denies any chest pain or trouble breathing. She denies any diarrhea. She denies any urinary symptoms. Review of Systems A 10 system review of systems was completed with positives and pertinent negatives listed in the HPI. Past Medical/Surgical History Surgical Problems: (1) H/O exploratory laparotomy (2) [place] teeth extracted Family History Cancer Diabetes mellitus Heart disease Hypertension Lung disease Social History Smoking Status: Never Smoker Drug Use: none Marital Status: single Housing Status: lives with family Current/Historical Medications Scheduled Clonidine Hcl (Catapres), 0.5 MG PO HS Diphenhydramine Hcl (Benadryl), 50 MG PO HS Gabapentin (Neurontin), 1,200 MG PO HS Mirtazapine Soltab (Remeron Soltab), 30 MG PO HS Ondasetron Odt (Zofran Odt), 4 MG SL Q6H Quetiapine Fumarate (Seroquel), 150 MG PO HS Scheduled PRN Hydrocodone/Acetaminophen 5MG/325MG (Nebo 5MG/325MG), 1 TABLET PO Q6 PRN for Pain Promethazine Hcl (Phenergan), 25 MG PO Q6H PRN for Nausea Allergies Coded Allergies: Calcium Channel Blockers (Verified Allergy, Mild, Hives, 11/09/16) Doxycycline (Verified Allergy, Mild, Vomiting, 11/09/16) Physical Exam Vital Signs Date Time Temp Pulse Resp B/P Pulse Ox O2 Delivery O2 Flow Rate FiO2 11/09/16 15:40 67 18 123/84 96 11/09/16 13:30 85 17 127/72 97 Room Air 11/09/16 11:22 37.2 87 18 131/87 97 Room Air Physical Exam VITALS: Vitals are noted on the nurse's note and reviewed by myself. Vital signs stable. GENERAL: This is a 26-year-old female, in no acute distress, nondiaphoretic, well-developed well-nourished. SKIN: The skin was without rashes, erythema, edema, or bruising. There is no tenting of the skin. Capillary reflex less than 2 seconds. HEAD: Normocephalic atraumatic. EARS: The external ears are normal in appearance. EYES: Pupils equal round and reactive to light and accommodation. Conjunctivae without injection, sclerae without icterus. Extraocular movements intact. NOSE: Patent, turbinates without inflammation or discharge. MOUTH: Mucous membranes moist. Tonsils are not enlarged. Pharynx without erythema or exudate. Uvula midline. Airway patent. Tongue does not deviate. NECK: Supple without nuchal rigidity. No JVD. HEART: Regular rate and rhythm without murmurs gallops or rubs. LUNGS: Clear to auscultation bilaterally without wheezes, rales or rhonchi. No retractions or accessory muscle use. ABDOMEN: Positive bowel sounds x 4. Soft, moderate right upper quadrant and epigastric tenderness, without masses or organomegaly. Calderon sign positive. MUSCULOSKELETAL: No muscle atrophy, erythema, or edema noted. Full range of motion in all extremities. Normal gait. Strength 5/5 throughout. NEURO: Patient was alert and oriented to person place and time. No focal neurological deficits. Medical Decision & Procedures ER Provider Diagnostic Interpretation: CHEST ONE VIEW PORTABLE CLINICAL HISTORY: Upper abdominal pain. COMPARISON STUDY: No previous studies for comparison. FINDINGS: Lung volumes are normal. There is no pneumothorax or pleural effusion. Linear left basilar opacity favors atelectasis. A 1.1 cm nodular density within the left lower lung may reflect a calcified granuloma. There is no evidence of pulmonary edema. Cardiomediastinal silhouette is normal. IMPRESSION: 1. No acute cardiopulmonary findings. 2. 1.1 cm nodular density projecting over the left lower lung which favors a calcified granuloma. ULTRASOUND RIGHT UPPER QUADRANT ABDOMEN CLINICAL HISTORY: Right upper quadrant abdominal pain. COMPARISON STUDY: Abdominal CT dated 08/30/2016. TECHNIQUE: Real-time, grayscale, and color flow sonography of the right upper quadrant of the abdomen was performed. Images are reviewed in the transverse and longitudinal planes. FINDINGS: Liver: The liver is enlarged and demonstrates diffusely increased echotexture consistent with hepatic steatosis. There is no intrahepatic biliary ductal dilatation. The main portal vein is patent. Gallbladder: The gallbladder is normal in appearance. No gallstones are identified. There is no gallbladder wall thickening or pericholecystic fluid. A sonographic Calderon's sign is reportedly absent. The common bile duct measures up to 0.4 cm in diameter. Pancreas: Visualized portions of the pancreatic head and body are normal in appearance. The splenic vein is patent. Right kidney: Survey images of the right kidney demonstrate normal size and echotexture. There is no hydronephrosis. Ascites: None. IMPRESSION: 1. No acute sonographic abnormality is identified in the right upper quadrant. No gallstones are seen. 2. Hepatomegaly and hepatic steatosis. Laboratory Results 11/09/16 12:40 Red Blood Count 4.52, Mean Corpuscular Volume 83.4, Mean Corpuscular Hemoglobin 27.7, Mean Corpuscular Hemoglobin Concent 33.2, Mean Platelet Volume 9.5, Neutrophils (%) (Auto) 52.7, Lymphocytes (%) (Auto) 35.7, Monocytes (%) (Auto) 8.5, Eosinophils (%) (Auto) 2.6, Basophils (%) (Auto) 0.5, Neutrophils # (Auto) 3.42, Lymphocytes # (Auto) 2.32, Monocytes # (Auto) 0.55, Eosinophils # (Auto) 0.17, Basophils # (Auto) 0.03 11/09/16 12:40 Test 11/09/16 12:40 11/09/16 14:10 White Blood Count 6.49 K/uL (4.8-10.8) Red Blood Count 4.52 M/uL (4.2-5.4) Hemoglobin 12.5 g/dL (12.0-16.0) Hematocrit 37.7 % (37-47) Mean Corpuscular Volume 83.4 fL (80-100) Mean Corpuscular Hemoglobin 27.7 pg (25-34) Mean Corpuscular Hemoglobin Concent 33.2 g/dl (32-36) Platelet Count 335 K/uL (130-400) Mean Platelet Volume 9.5 fL (7.4-10.4) Neutrophils (%) (Auto) 52.7 % Lymphocytes (%) (Auto) 35.7 % Monocytes (%) (Auto) 8.5 % Eosinophils (%) (Auto) 2.6 % Basophils (%) (Auto) 0.5 % Neutrophils # (Auto) 3.42 K/uL (1.4-6.5) Lymphocytes # (Auto) 2.32 K/uL (1.2-3.4) Monocytes # (Auto) 0.55 K/uL (0.11-0.59) Eosinophils # (Auto) 0.17 K/uL (0-0.5) Basophils # (Auto) 0.03 K/uL (0-0.2) RDW Standard Deviation 38.9 fL (36.4-46.3) RDW Coefficient of Variation 12.8 % (11.5-14.5) Immature Granulocyte % (Auto) 0.0 % Immature Granulocyte # (Auto) 0.00 K/uL (0.00-0.02) Anion Gap 6.0 mmol/L (3-11) Est Creatinine Clear Calc Drug Dose 108.7 ml/min Estimated GFR () 108.1 Estimated GFR (Non- 93.2 BUN/Creatinine Ratio 13.5 (10-20) Calcium Level 8.8 mg/dl (8.5-10.1) Total Bilirubin 0.3 mg/dl (0.2-1) Aspartate Amino Transf (AST/SGOT) 16 U/L (15-37) Alanine Aminotransferase (ALT/SGPT) 18 U/L (12-78) Alkaline Phosphatase 84 U/L (45-117) Total Protein 7.6 gm/dl (6.4-8.2) Albumin 3.1 gm/dl (3.4-5.0) Globulin 4.5 gm/dl (2.5-4.0) Albumin/Globulin Ratio 0.7 (0.9-2) Lipase 278 U/L (73-393) Hepatitis B Surface Antigen NEG (NEG) Hepatitis C Antibody NEG (NEG) Urine Color YELLOW Urine Appearance CLEAR (CLEAR) Urine pH 7.0 (4.5-7.5) Urine Specific [place] 1.025 (1.000-1.030) Urine Protein NEG (NEG) Urine Glucose (UA) NEG (NEG) Urine Ketones NEG (NEG) Urine Occult Blood NEG (NEG) Urine Nitrite NEG (NEG) Urine Bilirubin NEG (NEG) Urine Urobilinogen NEG (NEG) Urine Leukocyte Esterase NEG (NEG) Medications Administered Medications (Trade) Dose Ordered Sig/Lou Route Start Time Stop Time Status Last Admin Dose Admin Sodium Chloride (Nss 1000ml) 1,000 ml @ 999 mls/hr Q1H1M STAT IV 11/09/16 12:12 11/09/16 13:12 DC 11/09/16 13:12 999 MLS/HR Ondansetron HCl (Zofran Inj) 4 mg NOW STAT IV 11/09/16 12:12 11/09/16 12:14 DC 11/09/16 13:11 4 MG Morphine Sulfate (MoRPHine SULFATE INJ) 4 mg NOW STAT IV 11/09/16 12:12 11/09/16 12:14 DC 11/09/16 13:12 4 MG ED Course The patient was seen and examined. Previous visits were reviewed. The patient does not have a fever or leukocytosis. She does not have any significant electrolyte abnormalities. Lipase was not elevated. Urinalysis was negative. Hepatitis C antibody was negative. Hepatitis B antigen was negative. Hepatitis a is pending. Ultrasound of the right upper quadrant revealed hepatic steatosis and hepatomegaly which the patient states is known Portable chest x-ray does not reveal any significant abnormality or free air The patient was hydrated with normal saline She was given 4 mg IV morphine and 4 mg IV Zofran The patient has had upper abdominal pain, nausea and vomiting for the last 3 months. The patient has seen gastroenterology and her family doctor. She had an EGD done last week with nothing found. She has been taking Zofran and Protonix without any significant improvement. She stated the pain increased which prompted her to come to the emergency department. There was no acute finding on ultrasound. There were no significant laboratory abnormalities. The patient is tearful and frustrated. She states that she has had these symptoms with no relief. She stated that she could not get into see her family doctor for several months and does not have an appointment with gastroenterology until December. I asked case management to meet with the patient and they were able to secure an appointment with her family doctor tomorrow. She'll be given a small prescription for pain medication and Phenergan. She should return to the ER if any worsening symptoms. The case was discussed with Dr. Guerra who agrees with the assessment and treatment plan Medical Decision DIFFERENTIAL DIAGNOSIS: Hepatitis, cholecystitis, cholangitis, biliary colic, pancreatitis, pneumonia, subdiaphragmatic abscess, appendicitis, inguinal hernia , nephrolithiasis, inflammatory bowel disease, mesenteric adenitis, peptic ulcer disease, GERD, gastritis, pancreatitis, myocardial infarction, pericarditis, ruptured aortic aneurysm, appendicitis, gastroenteritis, bowel obstruction, splenic infarct, diverticulitis, mesenteric ischemia, metabolic, peritonitis, among others. [place] Drug Monitoring Program Search Results: patient reviewed within database, no issues identified Impression Primary Impression: Right upper quadrant abdominal pain Additional Impression: Nausea & vomiting Departure Information Dispostion Home / Self-Care Condition GOOD Prescriptions Promethazine Hcl (Phenergan) 25 Mg Tab 25 MG PO Q6H Y for Nausea for 3 Days, #12 TAB Prov: Naheed Guthrie PA-C 11/09/16 Hydrocodone/Acetaminophen 5MG/325MG (Nebo 5MG/325MG) Tab 1 TABLET PO Q6 Y for Pain, #12 TAB For Initial Treatment Prov: Naheed Guthrie PA-C 11/09/16 Referrals Katlin Smith MD (PCP) Forms HOME CARE DOCUMENTATION FORM, IMPORTANT VISIT INFORMATION, Work Instructions Return To Work: 1 day Patient Instructions Abdominal Pain, [employer] Additional Instructions Nebo 1 tablet every 6 hours if needed for worse pain. Do not drink or drive while taking Nebo and do not take with Tylenol. Phenergan as prescribed, as needed for nausea and vomiting. Return with any worsening symptoms. Problem Qualifiers
--- NOTE | 2016-11-09 12:37 | DIAGNOSTIC IMAGING REPORT ---
CHEST ONE VIEW PORTABLE CLINICAL HISTORY: Upper abdominal pain. COMPARISON STUDY: No previous studies for comparison. FINDINGS: Lung volumes are normal. There is no pneumothorax or pleural effusion. Linear left basilar opacity favors atelectasis. A 1.1 cm nodular density within the left lower lung may reflect a calcified granuloma. There is no evidence of pulmonary edema. Cardiomediastinal silhouette is normal. IMPRESSION: 1. No acute cardiopulmonary findings. 2. 1.1 cm nodular density projecting over the left lower lung which favors a calcified granuloma. Electronically signed by: Al Delgadillo M.D. 11/09/2016 12:35 PM Dictated Date/Time: 11/09/2016 12:35 PM
[2016-11-09 13:06] LABS: BASO % 0.5 %; BASO ABS # 0.03 K/uL (0-0.2); COMPLETE YES; EOS % 2.6 %; HEMATOCRIT 37.7 % (37-47); LYMPH % 35.7 %; LYMPH ABS # 2.32 K/uL (1.2-3.4); MEAN CELL VOLUME 83.4 fL (80-100); MEAN CORPUSCULAR HEMOGLOBIN 27.7 pg (25-34); MEAN CORPUSCULAR HGB CONC 33.2 g/dl (32-36); MEAN PLATELET VOLUME 9.5 fL (7.4-10.4); MONO % 8.5 %; NEUT % 52.7 %; PLATELET COUNT 335 K/uL (130-400); RED BLOOD COUNT 4.52 M/uL (4.2-5.4); WHITE BLOOD COUNT 6.49 K/uL (4.8-10.8)
[2016-11-09 13:26] LABS: BUN/CREATININE RATIO 13.5 (10-20); CALCIUM 8.8 mg/dl (8.5-10.1); CREATININE 0.86 mg/dl (0.60-1.20); POTASSIUM 4.3 mmol/L (3.5-5.1)
[2016-11-09 13:28] LABS: ALB/GLOB RATIO 0.7 (0.9-2)
--- NOTE | 2016-11-09 14:00 | DIAGNOSTIC IMAGING REPORT ---
ULTRASOUND RIGHT UPPER QUADRANT ABDOMEN CLINICAL HISTORY: Right upper quadrant abdominal pain. COMPARISON STUDY: Abdominal CT dated 08/30/2016. TECHNIQUE: Real-time, grayscale, and color flow sonography of the right upper quadrant of the abdomen was performed. Images are reviewed in the transverse and longitudinal planes. FINDINGS: Liver: The liver is enlarged and demonstrates diffusely increased echotexture consistent with hepatic steatosis. There is no intrahepatic biliary ductal dilatation. The main portal vein is patent. Gallbladder: The gallbladder is normal in appearance. No gallstones are identified. There is no gallbladder wall thickening or pericholecystic fluid. A sonographic Calderon's sign is reportedly absent. The common bile duct measures up to 0.4 cm in diameter. Pancreas: Visualized portions of the pancreatic head and body are normal in appearance. The splenic vein is patent. Right kidney: Survey images of the right kidney demonstrate normal size and echotexture. There is no hydronephrosis. Ascites: None. IMPRESSION: 1. No acute sonographic abnormality is identified in the right upper quadrant. No gallstones are seen. 2. Hepatomegaly and hepatic steatosis. Electronically signed by: Bryson Ulloa M.D. 11/09/2016 1:59 PM Dictated Date/Time: 11/09/2016 1:57 PM
[2016-11-09] MEDS ORDERED: HYDR-5688 PO (15:07)
[2016-11-09] MEDS ORDERED: PROM25TA9 PO (15:07)
[2016-11-09 15:15] LABS: URINE APPEARANCE CLEAR (CLEAR); URINE BILIRUBIN NEG (NEG); URINE COLOR YELLOW; URINE NITRITE NEG (NEG); URINE SPECIFIC GRAVITY 1.025 (1.000-1.030); UROBILINOGEN NEG (NEG); ZZUR CULT IF INDIC CLEAN CATCH NO
[2016-11-09 15:18] LABS: MANUAL MICROSCOPIC REQUIRED? NO; REVIEW REQ? NO
[2016-11-09 15:40] VITALS: BP 123/84; PULSE 67; O2SAT 96
== END 2016-11-09 15:25 | disposition home or self-care (01) ==
LOC: C.EDB 11:11 → C.EDC 15:25
DX: R10.11 Right upper quadrant pain (principal); R11.2 Nausea with vomiting, unspecified; Z86.19 Personal history of other infectious and parasitic diseases; Z98.818 Other dental procedure status; Z98.890 Other specified postprocedural states; Z83.3 Family history of diabetes mellitus; Z82.49 Family history of ischemic heart disease and other diseases of the circulatory system

== ENCOUNTER 2016-11-19 10:17 | Emergency (ER) | payer OTHER ==
[~2016-11-19] VITALS: Ht 157.5 cm; Wt 100.0 kg
[~2016-11-19 10:17] MED LIST changes: +HYDR-5688 PO
[2016-11-19 10:27] VITALS: TEMP 36.9; Ht 157.5 cm; Wt 100.0 kg
[2016-11-19] MEDS ORDERED: IBUPROFEN 600 MG TAB PO STA (10:39)
--- NOTE | 2016-11-19 10:41 | EMERGENCY ROOM VISIT NOTE ---
History Report prepared by Richie: Joey Her Under the Supervision of: Dr. Zacarias De La O M.D. First contact with patient: 10:28 Chief Complaint: FOOT PAIN Stated Complaint: POSSIBLE BROKEN RT FOOT History of Present Illness The patient is a 26 year old female who presents to the Emergency Room with complaints of right foot pain that began last night. The patient took a wrong step at this time, when she heard quite a lot of "snapping" sounds. She cannot bear weight on her foot without it causing significant pain. She rates her pain a 9/10 in severity. She denies any other complaints at this time. Source of History: patient Onset: last night Position: foot (right) Symptom Intensity: 9/10 Quality: sharp Timing: constant Modifying Factors (Worsening): exertion Note: She denies any other complaints at this time. Review of Systems See HPI for pertinent positives & negatives. A total of 10 systems reviewed and were otherwise negative. Past Medical & Surgical Surgical Problems: (1) H/O exploratory laparotomy (2) [place] teeth extracted Family History Cancer Diabetes mellitus Heart disease Hypertension Lung disease Social History Smoking Status: Never Smoker Smokeless Tobacco Use: No Drug Use: none Marital Status: single Housing Status: lives with family Current/Historical Medications Scheduled Amphetamine-Dextroamphetamine 20MG (Adderall 20MG), 20 MG PO QAM Clonidine Hcl (Catapres), 0.5 MG PO HS Gabapentin (Neurontin), 1,200 MG PO HS Hydroxyzine HCl (Hydroxyzine HCl), 75 MG PO HS Mirtazapine Soltab (Remeron Soltab), 30 MG PO HS Ondasetron Odt (Zofran Odt), 4 MG SL Q6H Quetiapine Fumarate (Seroquel), 150 MG PO HS Scheduled PRN Amphetamine-Dextroamphetamine 20MG (Adderall 20MG), 20 MG PO NOON PRN for PRN Hydrocodone/Acetaminophen 5MG/325MG ([place] 5MG/325MG), 1 TABLET PO Q6 PRN for Pain Oxycodone/Acetaminophen 5MG/325MG (Percocet 5MG/325MG), 1-2 TAB PO Q4H PRN for Pain Promethazine Hcl (Phenergan), 25 MG PO Q6H PRN for Nausea Allergies Coded Allergies: Calcium Channel Blockers (Verified Allergy, Mild, Hives, 5/7/17) Doxycycline (Verified Allergy, Mild, Vomiting, 11/19/16) Physical Exam Vital Signs Date Time Temp Pulse Resp B/P Pulse Ox O2 Delivery O2 Flow Rate FiO2 11/19/16 12:17 97 16 148/98 98 11/19/16 10:27 36.9 97 16 156/104 98 Physical Exam GENERAL: Patient is a healthy-appearing well-nourished HEAD: Normocephalic atraumatic EYES: Ocular movements intact pupils equal and react to light OROPHARYNX mucous membranes are moist no exudates present no erythema or edema present NECK: Supple no nuchal rigidity CHEST: Good equal expansion LUNGS: Clear and equal to auscultation CARDIAC: Normal S1 and S2 ABDOMEN: Soft nontender no guarding BACK: No CVA tenderness EXTREMITIES: Pain to the right 5th and 4th metatarsal area. NEURO: Patient is following commands is answering questions appropriately. Alert and oriented x3 Cranial Nerves 2-12 grossly intact Medical Decision & Procedures ER Provider Diagnostic Interpretation: X-ray results as stated below per interpretation by me and the radiologist: RIGHT FOOT MIN 3 VIEWS ROUTINE CLINICAL HISTORY: Right foot pain. Trauma. COMPARISON: None. DISCUSSION: No fractures or dislocations are visualized. IMPRESSION: No fractures identified. Electronically signed by: Dae Olivera M.D. 11/19/2016 10:53 AM Dictated Date/Time: 11/19/2016 10:53 AM Medications Administered Medications (Trade) Dose Ordered Sig/Lou Route Start Time Stop Time Status Last Admin Dose Admin Ibuprofen (Motrin Tab) 600 mg NOW STAT PO 11/19/16 10:39 11/19/16 10:41 DC 11/19/16 11:05 600 MG Oxycodone/ Acetaminophen (Percocet 5-325mg Tab) 2 tab NOW ONCE PO 11/19/16 10:45 11/19/16 10:46 DC 11/19/16 11:05 2 TAB ED Course 1028: Past medical records reviewed. The patient was evaluated in room A12. A complete history and physical examination was performed. 1039: Ordered Ibuprofen 600 mg PO 1045: Ordered Oxycodone/Acetaminophen 2 tab PO 1141: Upon reexamination the patient is resting. I discussed results and treatment plan with the patient. She verbalizes agreement and understanding. The patient is ready for discharge. Medical Decision Differential diagnosis: Etiologies such as fracture, dislocation, neurovascular compromise, compartment syndrome, soft tissue injury, as well as others were entertained. This is a 26-year-old female who presents emergency department complaining of pain. The patient has a slight contusion to the fourth and fifth metatarsal of the foot. She has good range of motion of the ankle the knee the hip. She has no evidence of cellulitis. X-rays do not reveal any bone abnormalities. For this reason I recommended that the patient be placed on crutches along with a hard sole shoe. She was given ibuprofen as well as Percocet. Repeat examination revealed the patient to be crying as she was upset that she was going to be placed on crutches as she feels that she cannot use them. For this reason I contacted case management to see if we can get the patient a knee scooter to roll around on. The patient was also upset about going back to work. I recommended follow-up with orthopedics [place] Drug Monitoring Program Search Results: patient reviewed within database Drug Monitoring Findings: 12 [place] Impression Primary Impression: Foot pain Scribe Attestation The scribe's documentation has been prepared under my direction and personally reviewed by me in its entirety. I confirm that the note above accurately reflects all work, treatment, procedures, and medical decision making performed by me. Departure Information Dispostion Home / Self-Care Prescriptions Oxycodone/Acetaminophen 5MG/325MG (PERCOCET 5MG/325MG) Tab 1-2 TAB PO Q4H Y for Pain, #14 TAB Prov: Zacarias De La O MD 11/19/16 Referrals Katlin Smith MD (PCP) Maximo Cyr MD Forms HOME CARE DOCUMENTATION FORM, IMPORTANT VISIT INFORMATION, School Instructions, Work Instructions Patient Instructions ED Contusion Foot, ED Crutch Walking, ED RICE, [facility] Additional Instructions Follow up with Dr Cyr's office for continued foot pain You received narcotic or benzodiazepene medication while in the emergency room today. Do not drive, operate heavy machinery, or drink alcohol under the influence of this medication. Take 600 mg Ibuprofen every 6 hours Take Percocet for breakthrough pain You have been examined and treated today on an emergency basis only. This is not a substitute for, or an effort to provide, complete comprehensive medical care. It is impossible to recognize and treat all injuries or illnesses in a single emergency department visit. It is therefore important that you follow up closely with Dr Smith. Call as soon as possible for an appointment. Thank you for your time and consideration. I look forward to speaking with you again soon. Please don't hesitate to call us if you have any questions. Problem Qualifiers Primary Impression: Foot pain Laterality: right Qualified Codes: M79.671 - Pain in right foot
[2016-11-19] MEDS ORDERED: OXYCODONE/ACETAMINOPHEN 5-325 TAB PO ONE (10:45)
[2016-11-19] MEDS ORDERED: ATR25 PO (10:55)
[2016-11-19] MEDS ORDERED: AMPH20TA2 PO ×2 (10:55)
--- NOTE | 2016-11-19 10:55 | DIAGNOSTIC IMAGING REPORT ---
RIGHT FOOT MIN 3 VIEWS ROUTINE CLINICAL HISTORY: Right foot pain. Trauma. COMPARISON: None. DISCUSSION: No fractures or dislocations are visualized. IMPRESSION: No fractures identified. Electronically signed by: Dae Olivera M.D. 11/19/2016 10:53 AM Dictated Date/Time: 11/19/2016 10:53 AM
[2016-11-19] MEDS ORDERED: PROM25TA9 PO (10:56)
[2016-11-19] MEDS ORDERED: OXYC-57 PO (11:03)
[2016-11-19 12:17] VITALS: BP 148/98; PULSE 97; O2SAT 98
== END 2016-11-19 13:10 | disposition home or self-care (01) ==
LOC: C.EDB 10:18
DX: M79.671 Pain in right foot (principal); S90.121A Contusion of right lesser toe(s) without damage to nail, initial encounter; X58.XXXA Exposure to other specified factors, initial encounter; Z79.899 Other long term (current) drug therapy; Z88.3 Allergy status to other anti-infective agents; Z88.8 Allergy status to other drugs, medicaments and biological substances; Z80.9 Family history of malignant neoplasm, unspecified; Z83.3 Family history of diabetes mellitus; Z82.49 Family history of ischemic heart disease and other diseases of the circulatory system

== ENCOUNTER → 2016-11-24 | Outpatient (CLI) | payer OTHER ==
[~2016-11-24] MED LIST changes: +AMPH20TA2 PO; +AMT50 PO; +ATR25 PO; -DIPH25CA5 PO; +HYDR-3126 PO; +IBUP-1428 PO; +OXYC-57 PO; +OXYC1TAB3 PO; +PROM25TA9 PO; +SINCALIDE INJ 2 MCG in SODIUM CHLORIDE 0.9% 100ML 100 ML IV ONE
--- NOTE | 2016-11-24 15:49 | DIAGNOSTIC IMAGING REPORT ---
NUCLEAR MEDICINE HEPATOBILIARY SCAN WITH EJECTION FRACTION HISTORY: Pain. Nausea. AB PAIN COMPARISON: None. TECHNIQUE: Immediately following the intravenous administration of 5.5 mCi Tc-99m Choletec, dynamic anterior abdominal imaging pre/post 200 mcg of Kinevac was performed. FINDINGS: Uniform hepatic tracer accumulation is shown. Prompt intrahepatic biliary excretion is seen. The gallbladder, common bile duct, and small bowel are all visualized by 25 minutes. This appearance represents the normal sequence of biliary excretion. The gallbladder ejection fraction following administration of Kinevac was 76 % (normal >35%). IMPRESSION: 1. No evidence for cystic duct obstruction. 2. Gallbladder ejection fraction calculated to be 76 %. Electronically signed by: Mendez Neely M.D. 11/24/2016 3:47 PM Dictated Date/Time: 11/24/2016 3:46 PM
== END | disposition home or self-care (01) ==
LOC: C.NUCL 12:41
PROVIDERS: ATTEND Student in an Organized Health Care Education/Training Program
DX: R10.9 Unspecified abdominal pain (principal)

== ENCOUNTER → 2016-11-29 | Outpatient (CLI) | payer OTHER ==
[~2016-11-29] MED LIST changes: -SINCALIDE INJ 2 MCG in SODIUM CHLORIDE 0.9% 100ML 100 ML IV ONE
--- NOTE | 2016-11-29 15:25 | DIAGNOSTIC IMAGING REPORT ---
RIGHT FOOT 3 VIEWS, RIGHT ANKLE 3 VIEWS HISTORY: RIGHT ANKLE AND FOOT PAIN Right COMPARISON: Right foot 11/19/2016. FINDINGS: There is no fracture or dislocation. Soft tissues are unremarkable. No radiopaque foreign bodies. IMPRESSION: No fracture or dislocation within the right ankle or right foot. Electronically signed by: David Russell M.D. 11/29/2016 3:24 PM Dictated Date/Time: 11/29/2016 3:21 PM
== END | disposition home or self-care (01) ==
LOC: C.RDSM 15:10
PROVIDERS: ATTEND Family Medicine
DX: M79.671 Pain in right foot (principal); M25.571 Pain in right ankle and joints of right foot

== ENCOUNTER → 2017-01-12 | Outpatient (CLI) | payer OTHER ==
[~2017-01-12] VITALS: Ht 157.5 cm; Wt 99.5 kg
[2017-01-12 15:16] VITALS: BP 109/76; PULSE 83; Ht 157.5 cm; Wt 99.5 kg
== END | disposition home or self-care (01) ==
LOC: C.NEUR 12:40
PROVIDERS: ATTEND Internal Medicine Pulmonary Disease
DX: G47.00 Insomnia, unspecified (principal); R53.83 Other fatigue; F84.5 Asperger's syndrome; R06.83 Snoring

== ENCOUNTER → 2017-01-21 | Outpatient (CLI) | payer OTHER ==
--- NOTE | 2017-01-22 06:11 | PAP/PSG TECHNICIAN REPORT ---
[facility] Offal Baler Polysomnogram Report Study name: None Report date: 01/22/2017 Study date: 01/21/2017 Referring Physician: Rafita Boggs M.D. Name: ANGELA ALBERT Interpreting Physician: Rafita Boggs M.D. Date of : 1990 Offal Baler: Laurie Gill [facility]. Sex: Female Age: 26 StudyType: PSG Weight: 219.4 lbs Height: 26 years, Height 5' 2" Neck Circum:15inches BMI: 40.12 Medications: Adderall 20mg, Clonidine HCl 0.2mg, Cyclocenzaprine HCl 10mg, Diphenhydramine HCl 50mg, Gabapentin 300mg, Mirtazapine 30mg, NuvaRing, Zofran 4mg Patient History Study started on room air with no ETCO2 monitoring in room #8. 26 yr old female here tonight for a diagnostic psg. She complains of sleep onset and sleep maintenance insomnia. She does snore. She has Asperger's syndrome and depression. She does kick and move around a lot in her sleep. Her ESS=3/24. Neck circ=15inches. She stated that she has been sleeping better since she started taking hydroxyzine before bedtime. Parameters Monitored NPSG: E1-M2, E2-M1, Fp1-M2, Fp2-M1, F3-M2, F4-M2, F4-M1, C3-M2, C4-M2, C4-M1, O1-M2, O2-M2, O2-M1, T3-M2, T4-M1, P3-M2, P4-M1, CHIN1, CHIN2, HR, EKG, Legs, PFLOW, SNOR, FLOW, CFLOW, Tidal Volume, THOR, ABDO, SpO2, PLTH, CPRESS, ETCO2 Wave, ETCO2, pH Sleep Architecture Sleep Stages Time at Lights Off 10:57:22 PM STAGES Time (min.) TST (%) Time at Lights On 5:38:22 AM Wake 48.0 -- Total Recording Time (TRT) 401.50 min. N1 27.0 8 Total Sleep Period (TSP) 367.5 min. N2 189.0 54 Total Sleep Time (TST) 353.0min. N3 98.5 28 Awake Time 48.0 min. REM 38.5 11 Wake after Sleep Onset 14.5 min. Sleep Efficiency (SE) 88 % Sleep Onset Latency (ANDRA) 33.5 min. Number of Stage 1 Shifts None Awakenings 14 Stage Changes 84 Number of REM periods 3 REM 38.5 11 REM Latency 311.5 min. NREM 314.5 89 Body Position Analysis Supine Right Left Side Prone Vertical Total Sleep Time (min.) 114.1 66.4 200.1 266.52 0.0 0.0 Total Sleep Time (%) 24% 19% 57% 76 0% N/A% Total Sleep Time REM (min.) 0.0 0.0 38.5 None 0.0 0.0 Total Sleep Time NREM (min.) 86.5 66.4 161.6 None 0.0 0.0 Intermittent Wake (min.) 27.7 11.6 8.7 None 0.0 0.0 Total Sleep Period (%) 24% None None None None None Arousals Myoclonus (PLM) * Events Count Index Events Count Index Spontaneous 21 4 Events Awake (PLMW) 103 128.8 Respiratory 0 0.0 Events Asleep w/ Arousal (PLMA) 12 2.0 PLM 12 2 Events Asleep w/o Arousal (PLMS) 32 5.4 Snoring 16 3 Total Asleep 44 7.5 Total 49 8 Total 147 22 Respiratory Analysis * CA OA MA CH H RERA Total Count 0 1 0 0 0 0 1 Index 0.0 0.2 0.0 0 0.0 0 0.2 Mean Duration 0.0 18.3 0.0 0.00 0.0 0.0 18.3 Longest Duration 0.0 18.3 0.0 0.00 0.0 0.0 18.3 Respiratory Event Summary Total Supine ~Supine Right Left Prone REM NREM Apneas Count 1 0 1 0 1 N/A 1 0 Index 0.2 0 0 0.0 0.3 N/A 2 0 Hypopneas (4% Desat) Count 0 0 0 0 0 N/A 0 0 Index 0.0 0.0 0 0.0 0.0 N/A 0.0 0.0 Apneas & All Hypopneas Count 1 0 1 0 1 N/A 1 0 Index 0.2 0 0 0 0 N/A 1.6 0.0 Respiratory Events (Wildlife Refuge Manager+All Hyp+RERA) Count 1 0 1 0 1 N/A 1 0 Index 0.2 0 0 0.0 0.3 N/A 1.6 0.0 Respiratory Related Arousal Count 0 0 0 0 0 N/A 0 0 Index 0.0 0 0 0 0 N/A 0 0 Snoring Analysis Supine Right Left Prone REM NREM Total Snore duration 3.2 min Snores count 10 22 36 N/A 7 61 68 Snore mean duration 2.8 Sec Snores index 7 20 11 N/A 10.9 11.6 11.6 TST with snoring (%) 0.9% Desaturation Event Summary: Minimum %SpO2 Event Count Mean/Min/Max Duration(sec.) Desaturation Index % Time In Bed > 90 8 28.1 / 14.0 / 51.0 2.0 61.5 86 - 90 2 19.5 / 14.0 / 25.0 0.8 38.5 81 - 85 0 N/A 0.0 0.0 76 - 80 0 N/A 0.0 0.1 71 - 75 0 N/A 0.0 0.0 66 - 70 0 N/A 0.0 0.0 61 - 65 0 N/A 0.0 0.0 56 - 60 0 N/A 0.0 0.0 51 - 55 0 N/A 0.0 0.0 < 50 0 N/A 0.0 0.0 Total REM NREM Awake <50% 0.0 min. 0.0 min. 0.0 min. 0.0 min. 51 - 60% 0.0 min. 0.0 min. 0.0 min. 0.0 min. 61 - 70% 0.0 min. 0.0 min. 0.0 min. 0.0 min. 71 - 80% 0.2 min. 0.0 min. 0.0 min. 0.2 min. 81 - 90% 150.8 min. 0.0 min. 145.0 min. 5.8 min. 91 - 100% 241.2 min. 38.4 min. 162.6 min. 40.2 min. Average 91 94 91 92 Minimum SpO2 80 92 86 80 Desaturation Event Index 1.2 0.0 0.6 6.3 # Desat. Events below 89% 2 N/A 2 N/A Time(%) with Saturation below 89% 12.2 0.0 12.1 0.1 Time(min.) with Saturation below 89% 47.8 0.0 47.3 0.5 Time (mins) REM (mins) NREM (mins) % of TST SpO2 Below 90% 3 N/A N3 22.2 SpO2 Below 88% 1 0 0 6 Heart Rate Analysis Min (bpm) Max (bpm) Average (bpm) Awake 46 281 93 NREM 60 106 77 REM 63 81 71 Overall 60 106 77 Supplemental O2 Values Minimum O2 level: None Value Start Time End Time Offal Baler Comments Miss Albert slept in the right, left and supine positions. No cardiac arrhythmia noted. PLM's were noted. No bruxism noted. Snoring was noted and scored as a 1 on a scale of 1 through 5. (0=no snoring, 5=snoring loud enough to be heard through a closed door or down the chase way) She did not use the restroom during the night. She stated that she slept well. The final report will be interpreted and signed by a sleep physician. The completed physician report will then be placed in the patient medical record. Therapy (cm H2O) 0 TIB (min.) 401.0 TST (min.) 353.0 Sleep Onset (min.) 33.5 REM Onset From Sleep (min.) 311.5 Sleep Efficiency % 88 Wakefulness (%) 12 Wakefulness (min.) 48.0 NREM 1 (%) 8 NREM 1 (min.) 27.0 NREM 2 (%) 54 NREM 2 (min.) 189.0 NREM 3 (%) 28 NREM 3 (min.) 98.5 REM (%) 11 REM (min.) 38.5 # Arousals 49 Arousal Index 8 # Snore 68 Snore Index 11.6 AHI 0.2 AHI Supine 0 AHI Non-Supine 0 NREM AHI 0.0 REM AHI 1.6 RDI 0.2 # Obstructive Apnea 1 # Central Apnea 0 # Mixed Apnea 0 # Hypopneas 0 RERAs 0 Total Respiratory Events 1 Time Below SpO2 89% (min.) 47.3 Mean NREM SpO2 (%) 91 Mean REM SpO2 (%) 94 Mean Sleep SpO2 (%) 91 Min NREM SpO2 (%) 86 Min REM SpO2 (%) 92 Position Supine (min.) 114.1 Position Non-supine (min.) 266.5 LM Index Sleep 7.5 LM Index NREM 8.2 LM Index REM 1.6 Mean Heart Rate (bpm) 77 Min Heart Rate (bpm) 60
--- NOTE | 2017-01-24 11:31 | Sleep Study ---
Sleep Study Report Date of Service: January 21, 2017 Sleep Study Report Clinical data: The patient is a 26-year-old female with a BMI of 40 referred for evaluation of sleep onset and sleep maintenance insomnia. She does kick and move a lot during sleep. She has been sleeping better since starting hydroxyzine before bedtime. Sleep architecture: Total sleep period was 367.5 minutes. Total sleep time was 353 minutes divided between 314.5 minutes of non-REM sleep and 38.5 minutes of REM sleep. Sleep onset latency was slightly delayed at 33.5 minutes. REM latency was delayed at 311.5 minutes. Sleep efficiency was 88 percent. Wake after sleep onset was 14.5 minutes. Sleep consisted of stage N1 8 percent, stage N2 54 percent, stage N3 28 percent, and REM 11 percent. Arousal data: 49 arousals were recorded for an index of 8 per hour. Sixteen were due to snoring, 12 were due to PLMs, and 21 were to spontaneous arousals. PLM data: 44 limb movements during sleep were noted for an index of 7.5 per hour with an arousal index of 2 per hour. Respiratory data: There was no evidence of significant sleep apnea documented. The AHI was 0.2. There was 1 obstructive apneic episode 18.3 seconds in duration. Oximetry data: No significant nocturnal hypoxemia was seen. Oxygen rosi was 86 percent during non-REM sleep. Mean saturation was 91 percent. Time below 88 percent was 1 minute. EKG: Heart rates ranged from 60 to 106 beats per minute. No arrhythmias were noted. Electronic Operator's comments: The patient slept in the right, left, and supine positions. Snoring was mild, rated 1 on a scale of 1 through 5. The patient did have 2 episodes of very rapid EEG activity possibly short bursts of seizure activity lasting for approximately 10 seconds on each occasion with spontaneous resolution. The 1st episode was at 2:42 a.m.. The 2nd episode was at 6:10 a.m.. Impression: No evidence of clinically significant sleep apnea/hypopnea, nocturnal hypoxemia, or abnormal limb movement events during sleep to explain this patient's symptoms. Other than slightly delayed sleep onset latency, her sleep was relatively normal. However there were 2 very short bursts of rapid EEG activity recorded which possibly could be occult seizure activity. Recommendations: Patient should continue to practice good sleep hygiene and use hydroxyzine for sleep. 24 hour EEG monitoring and neurology consultation for possible occult seizure activity may be of benefit. Clinical correlation is needed. Copies To 1: Mikael Schwartz D.O.; Aman Bhandari M.D.
== END | disposition home or self-care (01) ==
LOC: C.NEUR 21:00
PROVIDERS: ATTEND Internal Medicine Pulmonary Disease
DX: F84.5 Asperger's syndrome (principal); F32.9 Major depressive disorder, single episode, unspecified; R53.83 Other fatigue; G47.00 Insomnia, unspecified

== ENCOUNTER → 2017-02-05 | Outpatient (CLI) | payer OTHER ==
[~2017-02-05] VITALS: Ht 157.5 cm; Wt 99.7 kg
[2017-02-05 13:26] VITALS: BP 134/81; PULSE 114; Ht 157.5 cm; Wt 99.7 kg
== END | disposition home or self-care (01) ==
LOC: C.NEUR 12:45
PROVIDERS: ATTEND Physician Assistant
DX: R94.01 Abnormal electroencephalogram [EEG] (principal); R06.83 Snoring; F84.5 Asperger's syndrome; F32.9 Major depressive disorder, single episode, unspecified; R53.83 Other fatigue; G47.00 Insomnia, unspecified; F41.9 Anxiety disorder, unspecified

== ENCOUNTER 2017-04-02 10:53 | Emergency (ER) | payer OTHER ==
[~2017-04-02] VITALS: Ht 157.5 cm; Wt 101.7 kg
[~2017-04-02 10:53] MED LIST changes: -AMT50 PO; -HYDR-3126 PO; -IBUP-1428 PO; -OXYC1TAB3 PO
[2017-04-02 11:06] VITALS: TEMP 36.7; Ht 157.5 cm; Wt 101.7 kg
[2017-04-02] MEDS ORDERED: HYDR-3126 PO (11:44)
[2017-04-02] MEDS ORDERED: AMT50 PO (11:44)
[2017-04-02] MEDS ORDERED: SODIUM CHLORIDE 0.9% 1000ML 1,000 ML IV STA ×2 (11:50)
[2017-04-02] MEDS ORDERED: PROMETHAZINE HCL INJ 25 MG/ML 1 ML VIAL IV STA (11:50)
[2017-04-02] MEDS ORDERED: KETOROLAC TROMETHAMINE 30 MG/ML VIAL IV STA (11:50)
[2017-04-02] MEDS ORDERED: MoRPHine SULFATE 10 MG/ML CARP/VIAL IV PRN (12:00)
--- NOTE | 2017-04-02 12:01 | EMERGENCY ROOM VISIT NOTE ---
History Report prepared by Richie: Naheed Arango Under the Supervision of: Dr. Bryson Bello M.D. First contact with patient: 11:41 Chief Complaint: ABDOMINAL PAIN Stated Complaint: SEVERE CRAMPING FROM ENDOMETRIOSIS History of Present Illness The patient is a 26 year old female who presents to the Emergency Room with complaints of persistent abdominal cramping that began eight hours ago. She currently rates her discomfort as a 7/10 in severity. The patient states that she has a history of endometriosis. She states that she was well controlled on Depo-Provera shots for three years, but states that her insurance stopped covering the medication so she had a NuvaRing placed. The patient states that last month she noticed some slight vaginal breakthrough bleeding and cramping, but notes that today it her pain and bleeding is much worse. She states that she has been up since 399 in pain. 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 She states that she has tried taking Percocet and Oxycodone for her symptoms without relief. The patient reports a history of stomach problems since August, noting that it has been controlled by her Amitriptyline. She additionally reports nausea. The patient reports some slight pain radiating into her back. She additionally reports a history of ovarian cysts, denying her pain feeling similar to her previous ovarian cysts. The patient denies any history of and notes that she has been told that it would not be possible for her to become . Source of History: patient Onset: eight hours ago Position: abdomen Symptom Intensity: 7/10 Quality: cramping Timing: other (persistent) Associated Symptoms: + nausea, + back pain Note: Associated Symptoms: vaginal bleeding Review of Systems See HPI for pertinent positives & negatives. A total of 10 systems reviewed and were otherwise negative. Past Medical & Surgical Surgical Problems: (1) H/O exploratory laparotomy (2) [place] teeth extracted Family History Cancer Diabetes mellitus Heart disease Hypertension Lung disease Social History Smoking Status: Never Smoker Drug Use: none Marital Status: single Housing Status: lives with family Occupation Status: employed Current/Historical Medications Scheduled Amitriptyline Hcl (Elavil), 50 MG PO DAILY Amphetamine-Dextroamphetamine 20MG (Adderall 20MG), 20 MG PO BID Clonidine Hcl (Catapres), 0.5 MG PO HS Gabapentin (Neurontin), 1,200 MG PO HS Hydroxyzine Hcl (Atarax), 100 MG PO DAILY Mirtazapine Soltab (Remeron Soltab), 30 MG PO HS Ondasetron Odt (Zofran Odt), 4 MG SL Q6H Quetiapine Fumarate (Seroquel), 150 MG PO HS Scheduled PRN Hydrocodone/Acetaminophen 5MG/325MG ([place] 5MG/325MG), 1 TABLET PO Q6 PRN for Pain Ibuprofen (Motrin), 800 MG PO Q8H PRN for Pain Oxycodone Ir (Roxicodone Ir), 1-2 TAB PO Q4H PRN for Pain Promethazine Hcl (Phenergan), 25 MG PO Q6H PRN for Nausea Allergies Coded Allergies: Calcium Channel Blockers (Verified Allergy, Mild, Hives, 04/02/17) Doxycycline (Verified Allergy, Mild, Vomiting, 04/02/17) Physical Exam Vital Signs Date Time Temp Pulse Resp B/P (MAP) Pulse Ox O2 Delivery O2 Flow Rate FiO2 04/02/17 13:23 79 132/83 99 04/02/17 11:06 36.7 79 18 110/69 95 Room Air Physical Exam GENERAL: Patient is in no acute distress. HEENT: No acute trauma, normocephalic atraumatic, mucous membranes moist, no nasal congestion, no scleral icterus. NECK: No stridor, no adenopathy, no meningismus, trachea is midline. LUNGS: Clear to auscultation bilaterally, no wheeze, no rhonchi, breath sounds equal. HEART: Without murmurs gallops or rubs, regular rate and rhythm. ABDOMEN: Soft, mildly tender to the low pelvis bilaterally, bowel sounds positive, no hernias, no peritonitis. EXTREMITIES: No cyanosis or edema, full range of motion of all the joints without pain or difficulty, no signs for acute trauma. NEUROLOGIC: Oriented x 3, no acute motor or sensory deficits, no focal weakness. SKIN: No rash, no jaundice, no diaphoresis. Medical Decision & Procedures ER Provider Diagnostic Interpretation: Radiology results as stated below per my review and radiologist interpretation: EXAMINATION: PELVIC ULTRASOUND CLINICAL HISTORY: Abdominal pain, nausea, vomiting, diarrhea. COMPARISON STUDY: CT scan dated 08/30/2016 FINDINGS: The uterus measured 6.7 x 2.6 x 2.9 cm. The endometrial stripe measured 3 mm. Neither ovary was visualized. There was no evidence of pathologic free pelvic fluid. The study was difficult from a technical standpoint secondary to the patient's body habitus IMPRESSION: 1. Ultrasonographically normal uterus 2. Nonvisualization of the ovaries. No abnormal adnexal masses identified. Electronically signed by: Dae Olivera M.D. 04/02/2017 2:05 PM Dictated Date/Time: 04/02/2017 2:03 PM Laboratory Results 04/02/17 12:00 Red Blood Count 4.98, Mean Corpuscular Volume 84.5, Mean Corpuscular Hemoglobin 28.9, Mean Corpuscular Hemoglobin Concent 34.2, Mean Platelet Volume 9.6, Neutrophils (%) (Auto) 57.4, Lymphocytes (%) (Auto) 32.0, Monocytes (%) (Auto) 6.8, Eosinophils (%) (Auto) 2.4, Basophils (%) (Auto) 1.0, Neutrophils # (Auto) 3.99, Lymphocytes # (Auto) 2.23, Monocytes # (Auto) 0.47, Eosinophils # (Auto) 0.17, Basophils # (Auto) 0.07 04/02/17 12:00 Test 04/02/17 12:00 04/02/17 13:03 White Blood Count 6.96 K/uL (4.8-10.8) Red Blood Count 4.98 M/uL (4.2-5.4) Hemoglobin 14.4 g/dL (12.0-16.0) Hematocrit 42.1 % (37-47) Mean Corpuscular Volume 84.5 fL (80-100) Mean Corpuscular Hemoglobin 28.9 pg (25-34) Mean Corpuscular Hemoglobin Concent 34.2 g/dl (32-36) Platelet Count 293 K/uL (130-400) Mean Platelet Volume 9.6 fL (7.4-10.4) Neutrophils (%) (Auto) 57.4 % Lymphocytes (%) (Auto) 32.0 % Monocytes (%) (Auto) 6.8 % Eosinophils (%) (Auto) 2.4 % Basophils (%) (Auto) 1.0 % Neutrophils # (Auto) 3.99 K/uL (1.4-6.5) Lymphocytes # (Auto) 2.23 K/uL (1.2-3.4) Monocytes # (Auto) 0.47 K/uL (0.11-0.59) Eosinophils # (Auto) 0.17 K/uL (0-0.5) Basophils # (Auto) 0.07 K/uL (0-0.2) RDW Standard Deviation 41.6 fL (36.4-46.3) RDW Coefficient of Variation 13.6 % (11.5-14.5) Immature Granulocyte % (Auto) 0.4 % Immature Granulocyte # (Auto) 0.03 K/uL (0.00-0.02) Anion Gap 8.0 mmol/L (3-11) Est Creatinine Clear Calc Drug Dose 101.3 ml/min Estimated GFR () 97.0 Estimated GFR (Non- 83.7 BUN/Creatinine Ratio 11.5 (10-20) Calcium Level 9.1 mg/dl (8.5-10.1) Total Bilirubin 0.5 mg/dl (0.2-1) Aspartate Amino Transf (AST/SGOT) 23 U/L (15-37) Alanine Aminotransferase (ALT/SGPT) 24 U/L (12-78) Alkaline Phosphatase 86 U/L (45-117) Total Protein 7.9 gm/dl (6.4-8.2) Albumin 3.4 gm/dl (3.4-5.0) Globulin 4.5 gm/dl (2.5-4.0) Albumin/Globulin Ratio 0.8 (0.9-2) Lipase 232 U/L (73-393) Human Chorionic Gonadotropin, Qual NEG (NEG) Urine Color YELLOW Urine Appearance CLEAR (CLEAR) Urine pH 5.0 (4.5-7.5) Urine Specific [place] 1.023 (1.000-1.030) Urine Protein NEG (NEG) Urine Glucose (UA) NEG (NEG) Urine Ketones NEG (NEG) Urine Occult Blood 1+ (NEG) Urine Nitrite NEG (NEG) Urine Bilirubin NEG (NEG) Urine Urobilinogen NEG (NEG) Urine Leukocyte Esterase TRACE (NEG) Urine WBC (Auto) 1-5 /hpf (0-5) Urine RBC (Auto) 0-4 /hpf (0-4) Urine Hyaline Casts (Auto) 1-5 /lpf (0-5) Urine Epithelial Cells (Auto) 10-20 /lpf (0-5) Urine Bacteria (Auto) NEG (NEG) Laboratory results reviewed by me. Medications Administered Medications (Trade) Dose Ordered Sig/Lou Route Start Time Stop Time Status Last Admin Dose Admin Sodium Chloride 1,000 ml @ 200 mls/hr Q5H STAT IV 04/02/17 11:50 04/02/17 16:49 04/02/17 12:17 200 MLS/HR Sodium Chloride 1,000 ml @ 999 mls/hr Q1H1M STAT IV 04/02/17 11:50 04/02/17 12:50 DC 04/02/17 12:12 999 MLS/HR Morphine Sulfate (MoRPHine SULFATE INJ) 6 mg Q30M PRN IV 04/02/17 12:00 04/16/17 11:59 04/02/17 12:13 6 MG Ketorolac Tromethamine (Toradol Inj) 30 mg NOW STAT IV 04/02/17 11:50 04/02/17 11:53 DC 04/02/17 12:13 30 MG Promethazine HCl 12.5 mg/Sodium Chloride 50.5 ml @ 202 mls/hr NOW ONCE IV 04/02/17 12:15 04/02/17 12:29 DC 04/02/17 12:27 202 MLS/HR ED Course 1145: The patient was evaluated in room C6. A complete history and physical exam was performed. 1150: Ordered Toradol Inj 30 mg IV, Sodium Chloride 1000 ml @ 999 mls/hr IV, Sodium Chloride 1000 ml @ 200 mls/hr IV, Phenergan Inj 12.5 mg IV. 1200: Ordered Morphine Sulfate 6 mg IV. 1215: Promethazine HCl 12.5 mg/Sodium Chloride 50.5 ml @ 202 mls/hr IV. 1429: I discussed the patients case with Dr. Fine, masonry contractor. He states that he would not change any medications and get her pain under control. He states that he would not give the patient any other pain medications than Percocet. 1434: I reevaluated the patient and she is resting. I discussed the exam findings with her and I discussed the treatment plan. She verbalized complete understanding and agreement. She is ready to go home shortly. Medical Decision The patient is a 26 year old female who presents to the ED with complaints of abdominal cramping. Differential diagnoses considered include Ovarian cyst, endometriosis, , fibroids, UTI, anemia, electrolyte imbalance. There is no leukocytosis or concerning anemia. No significant electrolyte abnormality, kidney failure or hepatitis. No evidence for pancreatitis. Urinalysis does not show infection. testing is negative. Pelvic ultrasound was unrevealing, low large adnexal lesions noted. The uterus was unremarkable. On exam, the patient was not febrile or toxic. She was complaining of cramping in the low pelvis and had some mild tenderness in the pelvis on my exam. I spoke with the on-call OB group. The patient is being discharged with pain control and close follow-up. No changes in her control regimen for now. The patient did receive IV saline, IV Toradol, IV morphine and IV Phenergan, she is improved. She is being discharged with a few oxycodone for severe pain, high dose ibuprofen for inflammation and pain. If she has a fever, if she is worsening, she can return for reassessment. Her presentation does seem to be consistent with pain secondary to endometriosis. [place] Drug Monitoring Program Search Results: patient reviewed within database, see additional documentation Drug Monitoring Findings: She has not been prescribed any narcotic pain medications since November 2016. Medication Reconcilliation Current Medication List: was personally reviewed by me Consults Time Called: 1422 Consulting Physician: Dr. Fine, masonry contractor Returned Call: [phone] I discussed the patients case with Dr. Fine, masonry contractor. He states that he would not change any medications and get her pain under control. He states that he would not give the patient any other pain medications than Percocet. Impression Primary Impression: Pelvic pain Additional Impression: Endometriosis Scribe Attestation The scribe's documentation has been prepared under my direction and personally reviewed by me in its entirety. I confirm that the note above accurately reflects all work, treatment, procedures, and medical decision making performed by me. Departure Information Dispostion Home / Self-Care Prescriptions Oxycodone Ir (Roxicodone Ir) 5 Mg Tab 1-2 TAB PO Q4H Y for Pain, #12 TAB Prov: Bryson Bello M.D. 04/02/17 Ibuprofen (Motrin) 800 Mg Tab 800 MG PO Q8H Y for Pain for 4 Days, #12 TAB Prov: Bryson Bello M.D. 04/02/17 Referrals Katlin Smith MD (PCP) Forms HOME CARE DOCUMENTATION FORM, IMPORTANT VISIT INFORMATION, WORK / SCHOOL INSTRUCTIONS Patient Instructions My [facility] Additional Instructions call and set up roll hand appt return for fever or vomiting or worsening symptoms oxy ir 1-2 tab every 4 hours for pain motrin 800 mg 3x per day for 4 days heat to the area may help lab testing and imaging today was ok Problem Qualifiers
[2017-04-02] MEDS ORDERED: PROMETHAZINE HCL INJ 12.5 MG in SODIUM CHLORIDE 0.9% 50ML 50 ML IV ONE (12:15)
[2017-04-02 12:23] LABS: BASO ABS # 0.07 K/uL (0-0.2); COMPLETE YES; EOS % 2.4 %; HEMATOCRIT 42.1 % (37-47); IG% 0.4 %; LYMPH ABS # 2.23 K/uL (1.2-3.4); MEAN CELL VOLUME 84.5 fL (80-100); MEAN CORPUSCULAR HEMOGLOBIN 28.9 pg (25-34); MEAN CORPUSCULAR HGB CONC 34.2 g/dl (32-36); MEAN PLATELET VOLUME 9.6 fL (7.4-10.4); MONO % 6.8 %; NEUT % 57.4 %; PLATELET COUNT 293 K/uL (130-400); RED BLOOD COUNT 4.98 M/uL (4.2-5.4); WHITE BLOOD COUNT 6.96 K/uL (4.8-10.8)
[2017-04-02 12:43] LABS: BUN/CREATININE RATIO 11.5 (10-20); CALCIUM 9.1 mg/dl (8.5-10.1); CREATININE 0.94 mg/dl (0.60-1.20); POTASSIUM 4.1 mmol/L (3.5-5.1); PREG INTERNAL NEGATIVE QC NEG CLEAR BACKGROUND; PREG INTERNAL POSITIVE QC POS CONTROL LINE
[2017-04-02 12:46] LABS: ALB/GLOB RATIO 0.8 (0.9-2)
[2017-04-02 13:19] LABS: URINE APPEARANCE CLEAR (CLEAR); URINE BILIRUBIN NEG (NEG); URINE COLOR YELLOW; URINE NITRITE NEG (NEG); URINE SPECIFIC GRAVITY 1.023 (1.000-1.030); UROBILINOGEN NEG (NEG); ZZUR CULT IF INDIC CLEAN CATCH NO
[2017-04-02 13:21] LABS: MANUAL MICROSCOPIC REQUIRED? NO; REVIEW REQ? NO
--- NOTE | 2017-04-02 14:06 | DIAGNOSTIC IMAGING REPORT ---
EXAMINATION: PELVIC ULTRASOUND CLINICAL HISTORY: Abdominal pain, nausea, vomiting, diarrhea. COMPARISON STUDY: CT scan dated 08/30/2016 FINDINGS: The uterus measured 6.7 x 2.6 x 2.9 cm. The endometrial stripe measured 3 mm. Neither ovary was visualized. There was no evidence of pathologic free pelvic fluid. The study was difficult from a technical standpoint secondary to the patient's body habitus IMPRESSION: 1. Ultrasonographically normal uterus 2. Nonvisualization of the ovaries. No abnormal adnexal masses identified. Electronically signed by: Dae Olivera M.D. 04/02/2017 2:05 PM Dictated Date/Time: 04/02/2017 2:03 PM
[2017-04-02] MEDS ORDERED: OXYC1TAB3 PO (14:40)
[2017-04-02] MEDS ORDERED: IBUP-1428 PO (14:40)
[2017-04-02 15:00] VITALS: BP 122/81; PULSE 85; O2SAT 96
== END 2017-04-02 15:01 | disposition home or self-care (01) ==
LOC: C.EDB 10:54 → C.EDC 15:01
DX: R10.2 Pelvic and perineal pain (principal); N80.8 Other endometriosis; R11.0 Nausea

== ENCOUNTER → 2017-04-12 | Outpatient (CLI) | payer OTHER ==
[~2017-04-12] MED LIST changes: +AMT50 PO; -ATR25 PO; +HYDR-3126 PO; -ONDA4TAB10 SL; -OXYC-57 PO; +OXYC1TAB3 PO
--- NOTE | 2017-04-12 17:22 | EEG Procedure Note ---
EEG Procedure Note Date of Service Apr 12, 2017. Start / End Times Start Time: 1:24 PM End Time: 2:24 PM Referring Physician MARIA G Todd History This is a 26-year-old female with muscle twitching and previously reported abnormal EEG. One-hour extended EEG for further evaluation of possible seizure etiology. Home Medication List Scheduled Amitriptyline Hcl (Elavil), 50 MG PO DAILY Amphetamine-Dextroamphetamine 20MG (Adderall 20MG), 20 MG PO BID Clonidine Hcl (Catapres), 0.5 MG PO HS Gabapentin (Neurontin), 1,200 MG PO HS Hydroxyzine Hcl (Atarax), 100 MG PO DAILY Mirtazapine Soltab (Remeron Soltab), 30 MG PO HS Quetiapine Fumarate (Seroquel), 150 MG PO HS Scheduled PRN Hydrocodone/Acetaminophen 5MG/325MG ([place] 5MG/325MG), 1 TABLET PO Q6 PRN for Pain Oxycodone Ir (Roxicodone Ir), 1-2 TAB PO Q4H PRN for Pain Promethazine Hcl (Phenergan), 25 MG PO Q6H PRN for Nausea Description This is a 21 electrode EEG with a single channel dedicated to limited EKG. The electrodes were placed in accordance with the International 10-20 system. At the start of the recording the patient was in an awake state. Background was well organized and composed of symmetric mixed alpha and beta frequencies. There was a symmetric well-formed moderate amplitude 9-10 Hz posterior dominant rhythm that was reactive to eye opening and closure. Hyperventilation was not done. Intermittent photic stimulation at various frequencies produced no abnormalities. Sleep was indicated by vertex waves and symmetric sleep spindles Interpretation This is a normal awake and asleep one hour extended EEG. There was no electrographic seizures or epileptiform discharges. Clinical Correlation A normal EEG does not rule out epilepsy if there is a strong clinical suspicion.
== END | disposition home or self-care (01) ==
LOC: C.NEUR 13:13
PROVIDERS: ATTEND Physician Assistant
DX: R94.01 Abnormal electroencephalogram [EEG] (principal); R25.3 Fasciculation

== ENCOUNTER → 2017-05-29 | Outpatient (CLI) | payer OTHER ==
[~2017-05-29] MED LIST changes: -HYDR-5688 PO
[2017-05-29 16:20] LABS: THYROID STIMULATING HORMONE 0.926 uIu/ml (0.300-4.500)
== END | disposition home or self-care (01) ==
LOC: C.LAB 14:16
PROVIDERS: ATTEND Physician Assistant
DX: R25.3 Fasciculation (principal)

== ENCOUNTER → 2017-06-21 | Outpatient (CLI) | payer OTHER ==
--- NOTE | 2017-06-22 21:34 | PULMONARY FUNCTION TEST ---
Pre-bronchodilator spirometry is well within normal limits. There was no significant response to bronchodilator but this should not preclude a therapeutic trial if clinically warranted. Lung volumes and diffusion capacity were essentially within normal limits. Clinical correlation is needed.
== END | disposition home or self-care (01) ==
LOC: C.RC 13:14
PROVIDERS: ATTEND Internal Medicine Pulmonary Disease
DX: R06.83 Snoring (principal); R53.83 Other fatigue; F84.5 Asperger's syndrome; J18.9 Pneumonia, unspecified organism